=== PATIENT | female | born 1955 | race Caucasian/White ===

== ENCOUNTER 2018-07-12 02:22 | Outpatient (RCR) | payer BC, SELFPAY ==
[2018-07-12] MEDS: Normal Saline Flush 10 ML SYR IVP (14:59)
[2018-07-12] MEDS: Heparin 500 UNITS/5 ML SYRINGE IV (15:00)
[2018-07-12 15:46] LABS: Abs Immature Grans 0.02 k/cumm (0.0-0.09); Absolute Basophil Count 0.05 k/cumm (0.0-0.2); Absolute Lymphocyte Count 1.61 k/cumm (1.2-3.4); Absolute Monocyte Count 0.51 k/cumm (0.11-0.7); Absolute Neutrophil Count 4.06 k/cumm (1.2-6.7); Basophils % 0.8; Eosinophils % 4.6; HCT 35.9 % (36.0-46.0); HGB 12.1 g/dL (12.0-15.5); Immature Grans % 0.3; Lymphocytes % 24.6; Mean Corp. HGB Concentration 33.7 g/dL (32.0-36.0); Mean Corpuscular Hemoglobin 29.4 pg (27.0-33.0); Mean Corpuscular Volume 87.3 fL (80-95); Mean Platelet Volume 10.2 fL (8.0-11.0); Monocytes % 7.8; Neutrophils % 61.9; Platelet Count 209 x1000/uL (130-400); RBC 4.11 m/cumm (4.00-5.20); RBC Distribution Width 14.1 % (11.7-14.6); White Blood Cell Count 6.55 k/cumm (4.4-10.8)
[2018-07-12 16:07] LABS: ALT 12 U/L (12-78); AST 12 U/L (15-37); Albumin 3.5 g/dL (3.4-5.0); Alkaline Phosphatase 93 U/L (46-116); Anion Gap 5.8 mmol/L (3-11); BUN 12 mg/dL (7-18); Bilirubin, Total 0.3 mg/dL (0.2-1.0); CO2 29.2 mmol/L (21.0-32.0); CREATININE 0.59 mg/dL (0.55-1.02); Calcium 9.3 mg/dL (8.5-10.1); Chloride 104 mmol/L (98-107); Glucose 99 mg/dL (70-100); Potassium 3.9 mmol/L (3.5-5.1); Sodium 139 mmol/L (136-145); Total Protein 6.6 g/dL (6.4-8.2)
[2018-07-13 11:46] LABS: CA 19-9 586 U/mL (<35)
== END 2018-07-27 ==
LOC: INF 02:22
PROVIDERS: Visit Provider Nurse Practitioner Adult Health
DX: C25.9 Malignant neoplasm of pancreas, unspecified (principal); Z45.2 Encounter for adjustment and management of vascular access device
CPT/HCPCS: 36591; 80053; 85025; 86301

== ENCOUNTER 2018-07-19 10:29 | Emergency (ER) | payer BC, SELFPAY ==
[2018-07-19 10:38] VITALS: BP 152/101; PULSE 100; RESP 18; TEMP 36.7; O2SAT 98
--- NOTE | 2018-07-19 10:47 | DI.REPORT_ITS ---
SYMPTOM/DIAGNOSIS: NAUSEA, VOMITING, H/O PANCREATIC CA ABDOMEN: Two views were obtained. No free intraperitoneal air. Moderate to large quantity of fecal material in the colon, consistent with constipation. No evidence of bowel obstruction. No other specific abnormality is seen. PA CHEST: There is an indwelling right subclavian catheter in position. Cardiac size is within normal limits. Lungs are clear and well expanded. CONCLUSION: No evidence of acute disease.
--- NOTE | 2018-07-19 11:05 | ED.GENADUL ---
Disposition <Loco Mario - Last Filed: 07/19/18 13:57> <Jef De Paz - Last Filed: 07/19/18 16:47> Clinical Impression: Chemotherapy-induced nausea and vomiting Disposition: HOME Condition: Stable Instructions: Acute Nausea and Vomiting (ED) Additional Instructions: Return immediately to the emergency department for new or worsening symptoms these may include fever chills, chest pain, shortness of breath difficulty breathing, extreme weakness or any further concerns you may have. Otherwise it is important that you call the cancer center tomorrow morning for arrangement of follow-up reassessment and any further treatment you may need. For your bowel movements please take your Dulcolax and MiraLAX as prescribed. Otherwise eat small frequent meals and just start with clear liquids and bland foods and advance your diet as tolerated. Prescriptions: Ondansetron ODT [Zofran Odt] 4 mg PO Q6H PRN #10 tabef PRN Reason: Nausea Referrals: [facility] [Provider Group] (Call the office tomorrow morning for arrangement of follow-up visit.) Medical Decision Making - Lab Data Laboratory Tests 07/19/18 07/19/18 07/19/18 11:00 11:00 11:00 WBC 12.65 H RBC 4.75 Hgb 13.8 Hct 40.9 MCV 86.1 MCH 29.1 MCHC 33.7 RDW 13.6 Plt Count 245 MPV 9.8 Immature Gran % 0.1 Neutrophils % 84.1 Lymphocytes % 13.7 Monocytes % 1.8 Eosinophils % 0.3 Basophils % 0.0 Absolute Neutrophils 10.64 H Absolute Lymphocytes 1.73 Absolute Monocytes 0.23 Absolute Eosinophils 0.04 Absolute Basophils 0.00 Sodium 135 L Potassium 3.1 L Chloride 99 Carbon Dioxide 25.8 Anion Gap 10.2 BUN 18 Creatinine 0.50 L Estimated GFR/1.73 m2 >= 60.00 Glucose 121 H Lactate 0.9 Calcium 9.8 Magnesium 1.8 Total Bilirubin 0.9 AST 16 ALT 14 Alkaline Phosphatase 89 Total Protein 7.3 Albumin 3.7 - EKG Data -: EKG Interpreted by Ma EKG shows normal: sinus rhythm 07/19/18 13:57 Normal sinus rhythm, rate is 94, QRS is narrow, intervals unremarkable, no ST segment elevation present <Loco Mario - Last Filed: 07/19/18 13:57> - Lab Data Results reviewed for labs ordered during visit: Yes - Radiology Data Radiology results: report reviewed, image reviewed - Medical Decision Making Patient presenting to the emergency department with complaint of nausea vomiting and recent diagnosis of pancreatic cancer with starting chemotherapy Monday afternoon and symptoms beginning Monday night. Patient has not been able to take any oral intake of food, fluids, or medications. Patient was seen yesterday in the clinic and given Compazine, Ativan, and fluids but today has not improved and continues to look worse per nurse practitioner at the clinic and so patient is coming to the emergency department for further evaluation. Clinic was concerned of possible SBO given some abdominal discomfort that cannot be ruled out due to patient's history of cancer, opiate pain medication, and lack of bowel movement. Patient states that she was able to take her pain medication this morning and has tolerable amount of pain at this point but does feel anxious. Patient states chilled otherwise denies any known fever, chest pain, shortness of breath, or difficulty breathing. Patient is a frail looking female that is very thin. Plan to draw labs, check lactate, blood cultures, and to initially start with plain films of the abdomen. Abdominal exam does show diffuse nonfocal tenderness without rigidity and hyperactive bowel sounds. There is a possibility I will CT patient's abdomen but given need to wait for labs I do feel that this is an appropriate initial step. Pending results patient given Zofran IV and 1 L normal saline. Pending lab results patient stated some significant anxiety so she was given 0.5 mg of Ativan IV. After review of labs which do so some mild increase in WBCs, which I attributed to patient's recent chemotherapy and Neulasta and, and some mild hypokalemia patient shows no signs of significant laboratory findings of dehydration. Review of radiological imaging of patient's abdomen show mild stool burden but no significant findings of obstruction. Patient reassessed and stated some continued anxiety and mild nausea so additional 0.5 mg of Ativan was given along with additional 4 mg of Zofran after EKG was performed to ensure no QT prolongation. Patient then stated that she was feeling better so p.o. challenge was performed with water and crackers. Pending p.o. challenge I did call over to cancer Center and speak with Kristal Ely nurse practitioner. Reviewed all with patient results and findings with her. Given no significant or severe signs of dehydration and only mild hypokalemia I feel that if patient is able to tolerate p.o. intake that this is most likely side effects due to her chemotherapy which can be managed on an outpatient basis if able to tolerate p.o. Kristal stated no objection to this and after review of labs had no further recommendations. We agreed upon patient to receive some outpatient Zofran to see if that helps and for her to call the office first thing tomorrow morning for arrangement of follow-up appointment and to ensure that she is still tolerating p.o. intake. Patient was encouraged to return immediately for any new or significant worsening of symptoms. Patient was able to tolerate p.o. intake and requested to be discharged home as she states she was feeling better. Did also discuss with patient opiate use along with low oral intake and that that may cause some abdominal discomfort and constipation which may also be causing some of her crampy abdominal pain. Encourage patient to use Dulcolax as directed on packaging and then once she begins having bowel movements to start taking MiraLAX and to stay well-hydrated. After discussion of diagnosis and plan of care with patient patient agreed and stated no further needs, questions, or concerns at this time. <Jef De Paz - Last Filed: 07/19/18 16:47> History of Present Illness <Loco Mario - Last Filed: 07/19/18 13:57> - General Source: patient, family, RN/MD, RN notes reviewed, old records reviewed Mode of arrival: ambulatory Limitations: no limitations - History of Present Illness Initial comments: Patient reports that on Monday she had her first chemo treatment and since Monday evening she has had significant nausea and vomiting and has not been able to take any of her medications or tolerate any intake of food or fluids. Patient was seen earlier this morning at the cancer center and was sent to the emergency department for concern of severe dehydration, some subjective chills, and abdominal discomfort with nurse practitioner at cancer Center stating concern for possible SBO due to patient being on opiate pain medication. Onset/Timin -: days(s) Location: abdomen Severity scale (1-10): 6 Quality: aching Consistency: constant Improves with: none Worsens with: none Associated Symptoms: denies other symptoms Treatments Prior to Arrival: other (Pain medication-MS Contin) <Jef De Paz - Last Filed: 07/19/18 16:47> - General Chief complaint: Nausea/Vomit/Diar Stated complaint: PER [facility] Time Seen by Provider: 07/19/18 10:41 - Related Data Aspirin [Aspir 81] 81 mg PO DAILY 01/29/13 BuPROPion [Wellbutrin Xl] 300 mg PO QAM 01/29/13 Verapamil [Calan Sr] 180 mg PO DAILY 01/29/13 Atorvastatin [Lipitor] 10 mg PO DAILY tab-cap 11/18/15 Trazodone HCl 50 mg PO HS 11/18/15 Ondansetron ODT [Zofran Odt] 4 mg PO Q6H PRN #10 tabef 07/19/18 Allergies Allergy/AdvReac Type Severity Reaction Status Date / Time cyclobenzaprine HCl Allergy Intermediate Hives Unverified 11/18/15 09:41 [From Flexeril] tetracycline Allergy Mild Hives Unverified 11/18/15 09:41 Review of Systems Constitutional: chills, malaise, weakness. denies: fever Respiratory: denies: cough, shortness of breath Cardiovascular: denies: chest pain, palpitations, syncope Gastrointestinal: abdominal pain, nausea, constipation (Has not had bowel movement this week and attributes to not taking any food or fluids in.). denies: diarrhea Genitourinary: denies: dysuria Musculoskeletal: back pain (Mild) Skin: denies: rash Psychiatric: anxiety <Jef De Paz - Last Filed: 07/19/18 16:47> Past Medical History - Past Medical History Medical history: cancer (Pancreatic cancer) Surgical history: , hysterectomy, other (Port-A-Cath) Family history: CAD/VT - Social History Smoking status: current everyday smoker Alcohol use: none Drug use: none Living Situation: lives with family <Jef De Paz - Last Filed: 07/19/18 16:47> General Exam - General Limitations: no limitations General appearance: alert, other (Very thin frail appearing female) - ENT ENT exam: Present: mucous membranes dry - Respiratory Respiratory exam: Present: normal lung sounds bilaterally. Absent: respiratory distress, wheezes, rales, rhonchi, stridor - Cardiovascular Cardiovascular Exam: Present: regular rate, normal rhythm, normal heart sounds. Absent: tachycardia, systolic murmur, diastolic murmur, rubs, clicks - GI/Abdominal GI/Abdominal exam: Present: soft, tenderness (Diffuse throughout abdomen with no focal findings), hyperactive bowel sounds. Absent: guarding, rebound, rigid, organomegaly, mass, bruit, pulsatile mass - Neurological Exam Neurological exam: Present: alert, oriented X3. Absent: altered - Skin Skin exam: Present: warm, dry. Absent: cyanosis, diaphoretic, petechiae, pallor, mottled <Jef De Paz - Last Filed: 07/19/18 16:47> Course Vital Signs - 24 hr 07/19/18 07/19/18 10:38 13:37 Temperature 36.7 C 37.2 C Pulse 100 H 94 H Respiratory 18 16 Rate Blood Pressure 152/101 156/108 Pulse Oximetry 98 93 L <Loco Mario - Last Filed: 07/19/18 13:57> Vital Signs - 24 hr 07/19/18 10:38 Temperature 36.7 C Pulse 100 H Respiratory 18 Rate Blood Pressure 152/101 Pulse Oximetry 98 <Jef De Paz - Last Filed: 07/19/18 16:47>
[2018-07-19 11:14] LABS: Lactate-non-spesis 0.9 mmol/L (0.6-1.4)
[2018-07-19 11:15] LABS: Abs Immature Grans 0.01 k/cumm (0.0-0.09); Absolute Eosinophil Count 0.04 k/cumm (0.0-0.7); Absolute Lymphocyte Count 1.73 k/cumm (1.2-3.4); Absolute Monocyte Count 0.23 k/cumm (0.11-0.7); Absolute Neutrophil Count 10.64 k/cumm (1.2-6.7); Eosinophils % 0.3; HCT 40.9 % (36.0-46.0); HGB 13.8 g/dL (12.0-15.5); Immature Grans % 0.1; Lymphocytes % 13.7; Mean Corp. HGB Concentration 33.7 g/dL (32.0-36.0); Mean Corpuscular Hemoglobin 29.1 pg (27.0-33.0); Mean Corpuscular Volume 86.1 fL (80-95); Mean Platelet Volume 9.8 fL (8.0-11.0); Monocytes % 1.8; Neutrophils % 84.1; Platelet Count 245 x1000/uL (130-400); RBC 4.75 m/cumm (4.00-5.20); RBC Distribution Width 13.6 % (11.7-14.6); White Blood Cell Count 12.65 k/cumm (4.4-10.8)
[2018-07-19] MEDS: Ondansetron 4 MG/2 ML VIAL IVP ×2 (11:18→14:20)
[2018-07-19] MEDS: Lactated Ringers 1,000 ML 1000 ML IV (11:18)
[2018-07-19 11:29] LABS: ALT 14 U/L (12-78); AST 16 U/L (15-37); Albumin 3.7 g/dL (3.4-5.0); Alkaline Phosphatase 89 U/L (46-116); Anion Gap 10.2 mmol/L (3-11); BUN 18 mg/dL (7-18); Bilirubin, Total 0.9 mg/dL (0.2-1.0); CO2 25.8 mmol/L (21.0-32.0); Calcium 9.8 mg/dL (8.5-10.1); Chloride 99 mmol/L (98-107); Glucose 121 mg/dL (70-100); Magnesium 1.8 mg/dL (1.8-2.4); Potassium 3.1 mmol/L (3.5-5.1); Sodium 135 mmol/L (136-145); Total Protein 7.3 g/dL (6.4-8.2)
[2018-07-19] MEDS: LORazepam 2 MG/ML VIAL 0.5 MG IVP ×2 (11:36→13:37)
[2018-07-19 13:37] VITALS: BP 156/108; PULSE 94; RESP 16; TEMP 37.2; O2SAT 93
== END 2018-07-19 14:38 | disposition home or self-care (01) ==
PROVIDERS: Nurse Practitioner Family; Emergency Provider Emergency Medicine
DX: R11.2 Nausea with vomiting, unspecified (principal); T45.1X5A Adverse effect of antineoplastic and immunosuppressive drugs, initial encounter; C25.9 Malignant neoplasm of pancreas, unspecified; F41.9 Anxiety disorder, unspecified
CPT/HCPCS: 36415; 80053; 87040; 93005; 96361; 96374; 96375; 96376; 99285; 74022; 83605; 83735; 85025; 93010; 99284; J2060; J2405; J3490

== ENCOUNTER 2018-07-22 12:16 | Emergency (ER) | payer BC, SELFPAY ==
[2018-07-22 12:22] VITALS: BP 142/89; PULSE 106; RESP 20; TEMP 36.6; O2SAT 98
--- NOTE | 2018-07-22 12:37 | DI.RPTCT_ITS ---
SYMPTOMS/DIAGNOSIS: PANCREATIC CANCER, SEVERE EPIGASTRIC PAIN, VOMITING CT SCAN OF THE ABDOMEN AND PELVIS: CT scan of the abdomen and pelvis was performed following the uneventful administration of intravenous and oral contrast material. There are no priors for comparison. The visualized lung bases are clear. The liver is normal in size and appearance. There is a cyst in the left lobe of the liver. Tiny hypodensities are also seen throughout the liver. They are too small for further characterization. The portal and superior mesenteric veins are patent. The gallbladder is negative by CT criteria. There is no biliary ductal dilatation. There is a hypodense mass in the body of the pancreas most suggestive of the patient's known history of pancreatic carcinoma. This area measures approximately 3 cm in diameter. There is atrophy of the tail of the pancreas with enlargement of the pancreatic duct in the tail. There is thrombus seen within the mid portion of the splenic vein. The splenic artery is patent as visualized. Collateral vessels are seen around the pancreatic body. The spleen is unremarkable as are the adrenal glands. The kidneys show normal and symmetric enhancement. No evidence of a solid renal mass is present. There are hypodense lesions seen in the left kidney. They are too small for further characterization but likely reflect cysts. The urinary bladder is intact. The uterus appears to be absent. There is atherosclerosis of the abdominal aorta and extensive thrombus is seen in the infrarenal abdominal aorta. There is resultant narrowing of the lumen of the infrarenal abdominal aorta. No significant abdominal or pelvic ascites or pneumoperitoneum is present. There is a large amount of stool seen throughout the colon suggesting constipation. No findings to suggest an acute inflammatory or infectious process is seen. There is a normal appendix in the right lower quadrant. The bones are intact. There is a small fat containing umbilical hernia. IMPRESSION: 1. No evidence of an acute abdomen. 2. Findings suggestive of constipation. 3. Mass involving the body of the pancreas most suggestive of pancreatic carcinoma. Thrombus is seen in the mid portion of the splenic vein. 4. Extensive thrombus seen in the infrarenal abdominal aorta narrowing the lumen.
--- NOTE | 2018-07-22 12:42 | ED.GENADUL ---
Disposition Clinical Impression: Nausea and vomiting, Pancreatic cancer, Constipation Disposition: HOME Condition: Good Instructions: Constipation (ED), Acute Nausea and Vomiting (ED) Additional Instructions: Please take the Dilaudid as directed. Please take your Zofran every 6-8 hours as needed. Please take 2 packets of MiraLAX with 5 cups of water daily until you have consistent soft stool. If you notice any worsening of your symptoms, or any new symptoms such as vomiting, diarrhea, fever, chills, shortness of breath, chest pain, numbness, weakness, or fainting , please return immediately to the emergency department for reevaluation. Please follow up with your primary care provider as soon as possible for reassessment and reevaluation. As always, it was a pleasure participating in your medical care today. Prescriptions: HYDROmorphone [Dilaudid] 4 mg PO Q6H #20 tab Medical Decision Making - Medical Decision Making This is a pleasant 62-year-old female who was recently diagnosed with pancreatic cancer presents for evaluation of nausea vomiting and epigastric pain. She started chemotherapy on Monday, she had worsening of her symptoms and was seen and assessed here on had a normal abdominal series x-ray, and a relatively benign laboratory workup. Her symptoms have continued not improved over the last 3 days since her initial assessment here in the ED. She has difficulty maintaining p.o., and her pain appears to be unresolved. We will get a CT scan to evaluate for any signs of obstruction or worsening mass or occlusion. We will get a lipase as requested by her oncology team at [facility]. We will treat her pain and rehydrate. 5:[address] scan has returned, she demonstrates per virtual radiology findings consistent with constipation as well as additional findings consistent with a history of pancreatic carcinoma without evidence of gastric outlet obstruction or bowel obstruction. The patient's pain and symptoms have been significantly improved with the IV Dilaudid. She has been able to tolerate p.o. well. With findings of constipation, I do think this is most likely worsened by her recent pain medications, as well as a lack of taking her regular MiraLAX. Unfortunately she has the confounding variable of having severe chronic pain secondary to her pancreatic carcinoma. At this time the patient's priorities with her grave disease are pain control, control of her vomiting and nausea. Laboratory workup shows no evidence of significant pancreatitis. Her electrolytes demonstrate mild hypokalemia, no other significant abnormalities I imagine this is most likely secondary to her vomiting. Now that she is able to tolerate p.o. we will recommend diet high in potassium. We will give the patient oral Dilaudid for home use, focus her MiraLAX use, and continue her home Zofran. We discussed red flags which to return as well as the importance of close follow-up with her oncologist. The patient has complete resolution of her symptoms feel that she is appropriate for discharge. I have extensively reviewed the treatment plan and discharge instructions with the patient. I have addressed all patient concerns at this time. The patient was made aware of what symptoms to monitor for that would warrant a return to the emergency department. Discussed the plan with the patient, they demonstrate verbal understanding and agreement with our assessment and plan at this time. Additionally since we are giving the Dilaudid we will have the patient stop taking her Roxicodone and morphine. She has not been taking these because of adverse reactions from the medications associated with nausea, confusion, and bad dreams. Thus she needs a substitute and I feel she has tolerated the Dilaudid well here and will tolerate it well at home. We discussed the risks and benefits of taking this medication at home including the risks of addiction, decreased respiratory state, and constipation the patient understands these and accepts these. We went through potential alternatives and this appears the best viable option at this point. EKG 12: 46 Rate 97, sinus rhythm, IN 130, QTc 442, QRS 88, no ST elevations or depressions, no T-wave inversions except for in lead III. No other significant abnormalities. History of Present Illness - General Chief complaint: Abd Prob Stated complaint: STOMACH ISSUES Time Seen by Provider: 07/22/18 12:36 - History of Present Illness Initial comments: This is a pleasant 62-year-old female with a past medical history of recently diagnosed pancreatic cancer one month ago, with a pancreatic mass, who just started chemotherapy 6 days ago on Monday. On review of [facility] note she has been struggling with symptoms of epigastric pain nausea and vomiting consistently since her pancreatic cancer was diagnosed. The patient is on morphine, pain and nausea medications at home. After starting her chemotherapy the patient had severe malaise, worsening of her nausea, vomiting and epigastric pain. She was seen and assessed here 3 days ago on and had an x-ray performed which was negative, laboratory workup showing no severe abnormality. Patient's pain has continued, has not improved since then over the last 3 days. She continues to have difficulty maintaining p.o., she is having regular bowel movements O. She denies any hematemesis, hematochezia or acholic stool. She is taking her medications as directed. She did contact [facility] and spoke with Ezequiel Jo who is on-call for oncology, they recommended that she come in to get an evaluation of a lipase level. In addition to her epigastric pain and vomiting the patient has no additional complaints at this time. She is not on any blood thinners. She denies any recent trauma. She denies any pertinent family history. Past surgical history is positive for hysterectomy. She denies any IV or illicit drug use. - Related Data BuPROPion [Wellbutrin Xl] 300 mg PO QAM 01/29/13 Verapamil [Calan Sr] 180 mg PO DAILY 01/29/13 Atorvastatin [Lipitor] 10 mg PO DAILY tab-cap 11/18/15 Trazodone HCl 50 mg PO HS 11/18/15 Ondansetron ODT [Zofran Odt] 4 mg PO Q6H PRN #10 tabef 07/19/18 Bismuth Subsalicylate [Pepto-Bismol] 15 ml PO PRN PRN 07/22/18 HYDROmorphone [Dilaudid] 4 mg PO Q6H #20 tab 07/22/18 LORazepam [Ativan] 1 tab PO PRN PRN 07/22/18 Allergies Allergy/AdvReac Type Severity Reaction Status Date / Time cyclobenzaprine HCl Allergy Intermediate Hives Unverified 07/22/18 12:25 [From Flexeril] tetracycline Allergy Mild Hives Unverified 07/22/18 12:25 Review of Systems Other: 10 point review of systems was performed, pertinent positives and negatives are noted in the history of present illness. Past Medical History - Past Medical History Medical history: cancer (Pancreatic cancer) Surgical history: , hysterectomy, other (Port-A-Cath) Family history: CAD/SC - Social History Alcohol use: none Drug use: none General Exam - Other Other exam information: 1.Const: Thin and cachectic appearing female 2.Eyes: PERRL, no conjunctival injection, and symmetrical lids. 3.ENT: Atraumatic external nose and ears. Notably dry MM. Neck: Symmetric, trachea midline, No thyromegaly. 4.CVS: +S1/S2, No murmurs or gallops. Peripheral pulses 2+ and equal in all extremities. Brisk capillary refill in all extremities. 5.RESP: Unlabored respiratory effort. Clear to auscultation bilaterally. No wheezes rales or rhonchi 6.GI: Soft, notably tender epigastric pain on palpation, minimal voluntary guarding. Generalized tenderness throughout. No distention. Bowel sounds are present. 7.MSK: Normocephalic/Atraumatic, Extremities w/o deformity or ttp No cyanosis or clubbing, Normal movement of all extremities 8.Skin: Warm, Dry. No rashes or lesions. 9.Neuro: [employer] II-XII grossly intact. Sensation grossly intact, no focal neurologic deficits. 10.Psych: (AAO) x3. Appropriate mood and affect Course Vital Signs - 24 hr 07/22/18 12:22 Temperature 36.6 C Pulse 106 H Respiratory 20 Rate Blood Pressure 142/89 Pulse Oximetry 98
--- NOTE | 2018-07-22 12:46 | ED.GENADUL_ITS ---
Disposition Clinical Impression: Nausea and vomiting, Pancreatic cancer, Constipation Disposition: HOME Condition: Good Instructions: Constipation (ED), Acute Nausea and Vomiting (ED) Additional Instructions: Please take the Dilaudid as directed. Please take your Zofran every 6-8 hours as needed. Please take 2 packets of MiraLAX with 5 cups of water daily until you have consistent soft stool. If you notice any worsening of your symptoms, or any new symptoms such as vomiting, diarrhea, fever, chills, shortness of breath, chest pain, numbness, weakness, or fainting , please return immediately to the emergency department for reevaluation. Please follow up with your primary care provider as soon as possible for reassessment and reevaluation. As always, it was a pleasure participating in your medical care today. Prescriptions: HYDROmorphone [Dilaudid] 4 mg PO Q6H #20 tab Medical Decision Making - Medical Decision Making This is a pleasant 62-year-old female who was recently diagnosed with pancreatic cancer presents for evaluation of nausea vomiting and epigastric pain. She started chemotherapy on Monday, she had worsening of her symptoms and was seen and assessed here on had a normal abdominal series x-ray, and a relatively benign laboratory workup. Her symptoms have continued not improved over the last 3 days since her initial assessment here in the ED. She has difficulty maintaining p.o., and her pain appears to be unresolved. We will get a CT scan to evaluate for any signs of obstruction or worsening mass or occlusion. We will get a lipase as requested by her oncology team at [facility]. We will treat her pain and rehydrate. 5:[address] scan has returned, she demonstrates per virtual radiology findings consistent with constipation as well as additional findings consistent with a history of pancreatic carcinoma without evidence of gastric outlet obstruction or bowel obstruction. The patient's pain and symptoms have been significantly improved with the IV Dilaudid. She has been able to tolerate p.o. well. With findings of constipation, I do think this is most likely worsened by her recent pain medications, as well as a lack of taking her regular MiraLAX. Unfortunately she has the confounding variable of having severe chronic pain secondary to her pancreatic carcinoma. At this time the patient's priorities with her grave disease are pain control, control of her vomiting and nausea. Laboratory workup shows no evidence of significant pancreatitis. Her electrolytes demonstrate mild hypokalemia, no other significant abnormalities I imagine this is most likely secondary to her vomiting. Now that she is able to tolerate p.o. we will recommend diet high in potassium. We will give the patient oral Dilaudid for home use, focus her MiraLAX use, and continue her home Zofran. We discussed red flags which to return as well as the importance of close follow-up with her oncologist. The patient has complete resolution of her symptoms feel that she is appropriate for discharge. I have extensively reviewed the treatment plan and discharge instructions with the patient. I have addressed all patient concerns at this time. The patient was made aware of what symptoms to monitor for that would warrant a return to the emergency department. Discussed the plan with the patient, they demonstrate verbal understanding and agreement with our assessment and plan at this time. Additionally since we are giving the Dilaudid we will have the patient stop taking her Roxicodone and morphine. She has not been taking these because of adverse reactions from the medications associated with nausea, confusion, and bad dreams. Thus she needs a substitute and I feel she has tolerated the Dilaudid well here and will tolerate it well at home. We discussed the risks and benefits of taking this medication at home including the risks of addiction , decreased respiratory state, and constipation the patient understands these and accepts these. We went through potential alternatives and this appears the best viable option at this point. EKG 12: 46 Rate 97, sinus rhythm, OR 130, QTc 442, QRS 88, no ST elevations or depressions , no T-wave inversions except for in lead III. No other significant abnormalities. History of Present Illness - General Chief complaint: Abd Prob Stated complaint: STOMACH ISSUES Time Seen by Provider: 07/22/18 12:36 - History of Present Illness Initial comments: This is a pleasant 62-year-old female with a past medical history of recently diagnosed pancreatic cancer one month ago, with a pancreatic mass, who just started chemotherapy 6 days ago on Monday. On review of [facility] note she has been struggling with symptoms of epigastric pain nausea and vomiting consistently since her pancreatic cancer was diagnosed. The patient is on morphine, pain and nausea medications at home. After starting her chemotherapy the patient had severe malaise, worsening of her nausea, vomiting and epigastric pain. She was seen and assessed here 3 days ago on and had an x-ray performed which was negative, laboratory workup showing no severe abnormality. Patient's pain has continued, has not improved since then over the last 3 days. She continues to have difficulty maintaining p.o., she is having regular bowel movements O. She denies any hematemesis, hematochezia or acholic stool. She is taking her medications as directed. She did contact [facility] and spoke with Ezequiel Jo who is on-call for oncology, they recommended that she come in to get an evaluation of a lipase level. In addition to her epigastric pain and vomiting the patient has no additional complaints at this time. She is not on any blood thinners. She denies any recent trauma. She denies any pertinent family history. Past surgical history is positive for hysterectomy. She denies any IV or illicit drug use. - Related Data BuPROPion [Wellbutrin Xl] 300 mg PO QAM 01/29/13 Verapamil [Calan Sr] 180 mg PO DAILY 01/29/13 Atorvastatin [Lipitor] 10 mg PO DAILY tab-cap 11/18/15 Trazodone HCl 50 mg PO HS 11/18/15 Ondansetron ODT [Zofran Odt] 4 mg PO Q6H PRN #10 tabef 07/19/18 Bismuth Subsalicylate [Pepto-Bismol] 15 ml PO PRN PRN 07/22/18 HYDROmorphone [Dilaudid] 4 mg PO Q6H #20 tab 07/22/18 LORazepam [Ativan] 1 tab PO PRN PRN 07/22/18 Allergies Allergy/AdvReac Type Severity Reaction Status Date / Time cyclobenzaprine HCl Allergy Intermediate Hives Unverified 07/22/18 12:25 [From Flexeril] tetracycline Allergy Mild Hives Unverified 07/22/18 12:25 Review of Systems Other: 10 point review of systems was performed, pertinent positives and negatives are noted in the history of present illness. Past Medical History - Past Medical History Medical history: cancer (Pancreatic cancer) Surgical history: , hysterectomy, other (Port-A-Cath) Family history: CAD/HI - Social History Alcohol use: none Drug use: none General Exam - Other Other exam information: 1.Const: Thin and cachectic appearing female 2.Eyes: PERRL, no conjunctival injection, and symmetrical lids. 3.ENT: Atraumatic external nose and ears. Notably dry MM. Neck: Symmetric, trachea midline, No thyromegaly. 4.CVS: +S1/S2, No murmurs or gallops. Peripheral pulses 2+ and equal in all extremities. Brisk capillary refill in all extremities. 5.RESP: Unlabored respiratory effort. Clear to auscultation bilaterally. No wheezes rales or rhonchi 6.GI: Soft, notably tender epigastric pain on palpation, minimal voluntary guarding. Generalized tenderness throughout. No distention. Bowel sounds are present. 7.MSK: Normocephalic/Atraumatic, Extremities w/o deformity or ttp No cyanosis or clubbing, Normal movement of all extremities 8.Skin: Warm, Dry. No rashes or lesions. 9.Neuro: night guard II-XII grossly intact. Sensation grossly intact, no focal neurologic deficits. 10.Psych: (AAO) x3. Appropriate mood and affect Course Vital Signs - 24 hr 07/22/18 12:22 Temperature 36.6 C Pulse 106 H Respiratory 20 Rate Blood Pressure 142/89 Pulse Oximetry 98
[2018-07-22] MEDS: Normal Saline 1,000 ML 1000 ML IV (13:01)
[2018-07-22] MEDS: Ondansetron 4 MG/2 ML VIAL IVP (13:02)
[2018-07-22 13:03] LABS: Abs Immature Grans 0.02 k/cumm (0.0-0.09); Absolute Basophil Count 0.02 k/cumm (0.0-0.2); Absolute Lymphocyte Count 2.18 k/cumm (1.2-3.4); Absolute Monocyte Count 0.38 k/cumm (0.11-0.7); Absolute Neutrophil Count 4.24 k/cumm (1.2-6.7); Basophils % 0.3; Eosinophils % 5.5; HCT 38.8 % (36.0-46.0); HGB 13.6 g/dL (12.0-15.5); Immature Grans % 0.3; Lymphocytes % 30.1; Mean Corp. HGB Concentration 35.1 g/dL (32.0-36.0); Mean Corpuscular Hemoglobin 29.2 pg (27.0-33.0); Mean Corpuscular Volume 83.4 fL (80-95); Mean Platelet Volume 9.4 fL (8.0-11.0); Monocytes % 5.2; Neutrophils % 58.6; Platelet Count 158 x1000/uL (130-400); RBC 4.65 m/cumm (4.00-5.20); RBC Distribution Width 12.9 % (11.7-14.6); White Blood Cell Count 7.24 k/cumm (4.4-10.8)
[2018-07-22] MEDS: diphenhydrAMINE 50 MG/ML VIAL 25 MG IVP (13:03)
[2018-07-22] MEDS: HYDROmorphone 2 MG/ML VIAL 1 MG IVP ×2 (13:05→15:59)
[2018-07-22 13:18] LABS: ALT 12 U/L (12-78); AST 12 U/L (15-37); Albumin 3.3 g/dL (3.4-5.0); Alkaline Phosphatase 92 U/L (46-116); Anion Gap 7.5 mmol/L (3-11); BUN 27 mg/dL (7-18); Bilirubin, Total 0.3 mg/dL (0.2-1.0); CO2 27.5 mmol/L (21.0-32.0); CREATININE 0.59 mg/dL (0.55-1.02); Calcium 9.5 mg/dL (8.5-10.1); Chloride 100 mmol/L (98-107); Glucose 128 mg/dL (70-100); Lipase 95 U/L (73-393); Potassium 3.2 mmol/L (3.5-5.1); Sodium 135 mmol/L (136-145); Total Protein 6.6 g/dL (6.4-8.2)
[2018-07-22 13:22] LABS: Troponin I < 0.02 ng/mL (0.00-0.06)
[2018-07-22 14:34] LABS: Bilirubin Negative (Negative); Blood Trace-intact (Negative); Clarity Clear; Glucose Negative (Negative); Ketones Negative (Negative); Leukocyte Esterase Negative (Negative); Nitrite Negative (Negative); Urobilinogen 0.2 EU/dL (Up TO 0.2)
[2018-07-22 14:40] LABS: Bacteria Few HPF (Negative); C & S Indicated? No; Casts Negative LPF (Negative); Crystals Few Amorphous HPF (Negative); Epithelial Cells Few HPF (Negative); Mucus Trace (Negative); RBC 0-2 (0-2)
[2018-07-22] MEDS: Omnipaque 350 MG/ML 100 ML BTL IJ (15:25)
--- NOTE | 2018-07-22 16:28 | DI.VRAD_ITS ---
EXAM: CT Abdomen and Pelvis With Intravenous Contrast CLINICAL HISTORY: 62 years old, female; Signs and symptoms; Other: Pancreatic cancer, severe epigastric pain, vomiting TECHNIQUE: Axial computed tomography images of the abdomen and pelvis with intravenous contrast. Coronal and sagittal reformatted images were created and reviewed. COMPARISON: CR - ABD FLAT UPRIGHT PA CHEST 07/19/2018 12:36 PM FINDINGS: Appendix is normal. Pancreatic head is enlarged and inhomogeneous consistent with the history of pancreatic carcinoma. The pancreatic duct is also dilated. No focal inflammatory process or evidence of abnormal fluid collection is identified. Prominent atherosclerotic changes of the abdominal aorta with moderate mural thrombus but no significant aneurysmal dilatation. No obstructive uropathy. No evidence of bowel obstruction. The stomach is not significantly dilated. Prominent amount of fecal material within the colon consistent with constipation. Prior hysterectomy. IMPRESSION: Findings consistent with constipation as well as additional findings consistent with the history of pancreatic carcinoma without evidence of gastric outlet obstruction or bowel obstruction. Dictated and Authenticated by: Amrik Matamoros MD. Ordering:CHELSEA IZAGUIRRE MD
[2018-07-22 16:37] VITALS: BP 116/75; PULSE 92; RESP 14; O2SAT 96
[2018-07-22] MEDS: HYDROmorphone 4 MG TAB 8 MG PO (17:24)
[2018-07-22] MEDS: HYDROmorphone 2 MG/ML VIAL 0.5 MG IVP (17:25)
[2018-07-22 17:28] VITALS: BP 101/66; PULSE 87; RESP 16; TEMP 36.5; O2SAT 98
== END 2018-07-22 17:27 | disposition home or self-care (01) ==
PROVIDERS: Emergency Provider Student in an Organized Health Care Education/Training Program
DX: R11.2 Nausea with vomiting, unspecified (principal); K59.00 Constipation, unspecified; R10.13 Epigastric pain; C25.9 Malignant neoplasm of pancreas, unspecified; Z79.899 Other long term (current) drug therapy
CPT/HCPCS: 36415; 80053; 83690; 93005; 96361; 96374; 96375; 96376; 99285; 74177; 81003; 81015; 84484; 85025; 93010; J1200; J2405; J3490

== ENCOUNTER 2018-07-28 10:11 | Outpatient (CLI) | payer BC, SELFPAY ==
[2018-07-28 16:55] LABS: Anion Gap 5.6 mmol/L (3-11); BUN 10 mg/dL (7-18); CO2 29.4 mmol/L (21.0-32.0); CREATININE 0.72 mg/dL (0.55-1.02); Calcium 8.7 mg/dL (8.5-10.1); Chloride 98 mmol/L (98-107); Glucose 116 mg/dL (70-100); Potassium 3.8 mmol/L (3.5-5.1); Sodium 133 mmol/L (136-145)
[2018-07-28 16:58] LABS: HCT 33.1 % (36.0-46.0); HGB 11.1 g/dL (12.0-15.5); Mean Corp. HGB Concentration 33.5 g/dL (32.0-36.0); Mean Corpuscular Hemoglobin 28.9 pg (27.0-33.0); Mean Corpuscular Volume 86.2 fL (80-95); RBC 3.84 m/cumm (4.00-5.20); White Blood Cell Count 4.41 k/cumm (4.4-10.8)
[2018-07-28 17:00] LABS: Abs Immature Grans 0.01 k/cumm (0.0-0.09); Absolute Basophil Count 0.01 k/cumm (0.0-0.2); Absolute Eosinophil Count 0.19 k/cumm (0.0-0.7); Absolute Lymphocyte Count 0.67 k/cumm (1.2-3.4); Absolute Monocyte Count 0.79 k/cumm (0.11-0.7); Absolute Neutrophil Count 2.74 k/cumm (1.2-6.7); Basophils % 0.2; Eosinophils % 4.3; Immature Grans % 0.2; Lymphocytes % 15.2; Mean Platelet Volume 10.1 fL (8.0-11.0); Monocytes % 17.9; Neutrophils % 62.2; Platelet Count 238 x1000/uL (130-400); RBC Distribution Width 13.5 % (11.7-14.6)
[2018-07-28 17:21] LABS: Magnesium 1.3 mg/dL (1.8-2.4)
== END 2018-07-28 10:12 ==
PROVIDERS: PCP Family Medicine; Visit Provider Family Medicine
DX: C25.9 Malignant neoplasm of pancreas, unspecified (principal); T45.1X5A Adverse effect of antineoplastic and immunosuppressive drugs, initial encounter; R11.2 Nausea with vomiting, unspecified; D64.9 Anemia, unspecified; E87.1 Hypo-osmolality and hyponatremia; E83.42 Hypomagnesemia
CPT/HCPCS: 80048; 83735; 85025

== ENCOUNTER 2018-08-24 00:46 | Outpatient (RCR) | payer BC, SELFPAY ==
[2018-08-10] MEDS: Heparin 500 UNITS/5 ML SYRINGE IV (13:50)
[2018-08-10] MEDS: Normal Saline Flush 10 ML SYR IVP (13:50)
[2018-08-10 14:22] LABS: Abs Immature Grans 0.04 k/cumm (0.0-0.09); Absolute Basophil Count 0.04 k/cumm (0.0-0.2); Absolute Eosinophil Count 0.21 k/cumm (0.0-0.7); Absolute Lymphocyte Count 2.04 k/cumm (1.2-3.4); Absolute Monocyte Count 0.55 k/cumm (0.11-0.7); Absolute Neutrophil Count 4.53 k/cumm (1.2-6.7); Basophils % 0.5; Eosinophils % 2.8; HCT 33.7 % (36.0-46.0); Immature Grans % 0.5; Lymphocytes % 27.5; Mean Corp. HGB Concentration 32.6 g/dL (32.0-36.0); Mean Corpuscular Volume 88.9 fL (80-95); Monocytes % 7.4; Neutrophils % 61.3; Platelet Count 296 x1000/uL (130-400); RBC 3.79 m/cumm (4.00-5.20); RBC Distribution Width 15.1 % (11.7-14.6); White Blood Cell Count 7.41 k/cumm (4.4-10.8)
[2018-08-10 14:44] LABS: ALT 14 U/L (12-78); AST 15 U/L (15-37); Albumin 2.8 g/dL (3.4-5.0); Alkaline Phosphatase 82 U/L (46-116); Anion Gap 8.8 mmol/L (3-11); BUN 14 mg/dL (7-18); Bilirubin, Total 0.1 mg/dL (0.2-1.0); CO2 27.2 mmol/L (21.0-32.0); CREATININE 0.66 mg/dL (0.55-1.02); Chloride 104 mmol/L (98-107); Glucose 125 mg/dL (70-100); Potassium 4.1 mmol/L (3.5-5.1); Sodium 140 mmol/L (136-145)
[2018-08-13 15:57] LABS: CA 19-9 1188 U/mL (<35)
[2018-08-17] MEDS: Normal Saline Flush 10 ML SYR IVP (12:15)
[2018-08-17 12:56] LABS: Abs Immature Grans 0.02 k/cumm (0.0-0.09); Absolute Basophil Count 0.01 k/cumm (0.0-0.2); Absolute Eosinophil Count 0.03 k/cumm (0.0-0.7); Absolute Lymphocyte Count 1.04 k/cumm (1.2-3.4); Absolute Monocyte Count 0.79 k/cumm (0.11-0.7); Absolute Neutrophil Count 9.37 k/cumm (1.2-6.7); Basophils % 0.1; Eosinophils % 0.3; HCT 35.8 % (36.0-46.0); HGB 11.8 g/dL (12.0-15.5); Immature Grans % 0.2; Lymphocytes % 9.2; Mean Corpuscular Hemoglobin 29.1 pg (27.0-33.0); Mean Corpuscular Volume 88.4 fL (80-95); Mean Platelet Volume 9.6 fL (8.0-11.0); Neutrophils % 83.2; Platelet Count 293 x1000/uL (130-400); RBC 4.05 m/cumm (4.00-5.20); RBC Distribution Width 15.2 % (11.7-14.6); White Blood Cell Count 11.26 k/cumm (4.4-10.8)
[2018-08-17 12:57] LABS: ALT 14 U/L (12-78); AST 10 U/L (15-37); Albumin 3.4 g/dL (3.4-5.0); Alkaline Phosphatase 82 U/L (46-116); Anion Gap 7.1 mmol/L (3-11); BUN 15 mg/dL (7-18); Bilirubin, Total 0.3 mg/dL (0.2-1.0); CO2 28.9 mmol/L (21.0-32.0); CREATININE 0.63 mg/dL (0.55-1.02); Chloride 101 mmol/L (98-107); Glucose 140 mg/dL (70-100); Potassium 3.5 mmol/L (3.5-5.1); Sodium 137 mmol/L (136-145); Total Protein 6.7 g/dL (6.4-8.2)
[2018-08-20 11:57] LABS: CA 19-9 1701 U/mL (<35)
[2018-08-24] MEDS: Normal Saline Flush 10 ML SYR IVP (09:00)
[2018-08-24 09:18] LABS: Abs Immature Grans 0.01 k/cumm (0.0-0.09); Absolute Lymphocyte Count 1.66 k/cumm (1.2-3.4); Absolute Monocyte Count 0.23 k/cumm (0.11-0.7); Absolute Neutrophil Count 2.07 k/cumm (1.2-6.7); Eosinophils % 4.8; HCT 32.1 % (36.0-46.0); HGB 10.6 g/dL (12.0-15.5); Immature Grans % 0.2; Lymphocytes % 39.8; Mean Corpuscular Hemoglobin 29.4 pg (27.0-33.0); Mean Corpuscular Volume 88.9 fL (80-95); Mean Platelet Volume 9.3 fL (8.0-11.0); Monocytes % 5.5; Neutrophils % 49.7; Platelet Count 136 x1000/uL (130-400); RBC 3.61 m/cumm (4.00-5.20); RBC Distribution Width 15.1 % (11.7-14.6); White Blood Cell Count 4.17 k/cumm (4.4-10.8)
[2018-08-24 09:33] LABS: ALT 14 U/L (12-78); AST 9 U/L (15-37); Alkaline Phosphatase 92 U/L (46-116); Anion Gap 5.1 mmol/L (3-11); BUN 26 mg/dL (7-18); Bilirubin, Total 0.2 mg/dL (0.2-1.0); CO2 30.9 mmol/L (21.0-32.0); CREATININE 0.59 mg/dL (0.55-1.02); Calcium 9.5 mg/dL (8.5-10.1); Chloride 100 mmol/L (98-107); Glucose 120 mg/dL (70-100); Potassium 4.3 mmol/L (3.5-5.1); Sodium 136 mmol/L (136-145)
== END 2018-08-26 23:59 | disposition home or self-care (01) ==
LOC: INF 00:46
PROVIDERS: PCP Family Medicine; Visit Provider Nurse Practitioner Adult Health
DX: C25.9 Malignant neoplasm of pancreas, unspecified (principal); Z45.2 Encounter for adjustment and management of vascular access device
CPT/HCPCS: 36591; 80053; 85025; 86301

== ENCOUNTER 2018-09-21 01:09 | Outpatient (RCR) | payer BC, SELFPAY ==
[2018-08-31] MEDS: Normal Saline Flush 10 ML SYR IVP (08:25)
[2018-08-31 08:40] LABS: Abs Immature Grans 0.01 k/cumm (0.0-0.09); Absolute Eosinophil Count 0.07 k/cumm (0.0-0.7); Absolute Lymphocyte Count 1.44 k/cumm (1.2-3.4); Absolute Monocyte Count 0.31 k/cumm (0.11-0.7); Absolute Neutrophil Count 2.62 k/cumm (1.2-6.7); Eosinophils % 1.6; HCT 29.5 % (36.0-46.0); HGB 9.5 g/dL (12.0-15.5); Immature Grans % 0.2; Lymphocytes % 32.4; Mean Corp. HGB Concentration 32.2 g/dL (32.0-36.0); Mean Corpuscular Hemoglobin 29.2 pg (27.0-33.0); Mean Corpuscular Volume 90.8 fL (80-95); Mean Platelet Volume 9.1 fL (8.0-11.0); Neutrophils % 58.8; RBC 3.25 m/cumm (4.00-5.20); RBC Distribution Width 15.7 % (11.7-14.6); White Blood Cell Count 4.45 k/cumm (4.4-10.8)
[2018-08-31 08:59] LABS: Diff Comment RBC Morph Reviewed; Platelet Count 91 x1000/uL (130-400)
[2018-08-31 09:00] LABS: Poikilocytes 2+
[2018-08-31 09:13] LABS: ALT 15 U/L (12-78); AST 10 U/L (15-37); Albumin 2.7 g/dL (3.4-5.0); Alkaline Phosphatase 89 U/L (46-116); Anion Gap 5.4 mmol/L (3-11); BUN 14 mg/dL (7-18); Bilirubin, Total 0.2 mg/dL (0.2-1.0); CO2 28.6 mmol/L (21.0-32.0); CREATININE 0.57 mg/dL (0.55-1.02); Calcium 8.9 mg/dL (8.5-10.1); Chloride 105 mmol/L (98-107); Glucose 123 mg/dL (70-100); Sodium 139 mmol/L (136-145); Total Protein 5.7 g/dL (6.4-8.2)
[2018-09-03 12:36] LABS: CA 19-9 1533 U/mL (<35)
[2018-09-14] MEDS: Normal Saline Flush 10 ML SYR IVP (08:55)
[2018-09-14 09:35] LABS: Abs Immature Grans 0.03 k/cumm (0.0-0.09); Absolute Basophil Count 0.02 k/cumm (0.0-0.2); Absolute Lymphocyte Count 1.39 k/cumm (1.2-3.4); Absolute Monocyte Count 0.72 k/cumm (0.11-0.7); Basophils % 0.3; Eosinophils % 1.5; HCT 32.2 % (36.0-46.0); HGB 10.3 g/dL (12.0-15.5); Immature Grans % 0.5; Lymphocytes % 20.9; Mean Corpuscular Hemoglobin 29.3 pg (27.0-33.0); Mean Corpuscular Volume 91.7 fL (80-95); Mean Platelet Volume 9.1 fL (8.0-11.0); Monocytes % 10.8; Platelet Count 343 x1000/uL (130-400); RBC 3.51 m/cumm (4.00-5.20); RBC Distribution Width 16.9 % (11.7-14.6); White Blood Cell Count 6.66 k/cumm (4.4-10.8)
[2018-09-14 09:49] LABS: ALT 15 U/L (12-78); AST 15 U/L (15-37); Albumin 3.1 g/dL (3.4-5.0); Alkaline Phosphatase 87 U/L (46-116); Anion Gap 8.1 mmol/L (3-11); BUN 12 mg/dL (7-18); Bilirubin, Total 0.2 mg/dL (0.2-1.0); CO2 27.9 mmol/L (21.0-32.0); CREATININE 0.59 mg/dL (0.55-1.02); Calcium 8.9 mg/dL (8.5-10.1); Chloride 104 mmol/L (98-107); Glucose 112 mg/dL (70-100); Potassium 4.1 mmol/L (3.5-5.1); Sodium 140 mmol/L (136-145); Total Protein 6.1 g/dL (6.4-8.2)
[2018-09-17 11:47] LABS: CA 19-9 1047 U/mL (<35)
[2018-09-21] MEDS: Normal Saline Flush 10 ML SYR IVP (08:45)
[2018-09-21 09:46] LABS: Abs Immature Grans 0.54 k/cumm (0.0-0.09); HGB 10.2 g/dL (12.0-15.5); Mean Corp. HGB Concentration 31.9 g/dL (32.0-36.0); Mean Corpuscular Hemoglobin 28.9 pg (27.0-33.0); Mean Corpuscular Volume 90.7 fL (80-95); Mean Platelet Volume 9.3 fL (8.0-11.0); Platelet Count 417 x1000/uL (130-400); RBC 3.53 m/cumm (4.00-5.20); RBC Distribution Width 16.7 % (11.7-14.6); White Blood Cell Count 5.25 k/cumm (4.4-10.8)
[2018-09-21 10:01] LABS: ALT 24 U/L (12-78); AST 15 U/L (15-37); Alkaline Phosphatase 91 U/L (46-116); Anion Gap 7.9 mmol/L (3-11); BUN 13 mg/dL (7-18); Bilirubin, Total 0.2 mg/dL (0.2-1.0); CO2 28.1 mmol/L (21.0-32.0); CREATININE 0.49 mg/dL (0.55-1.02); Chloride 103 mmol/L (98-107); Glucose 130 mg/dL (70-100); Potassium 3.6 mmol/L (3.5-5.1); Sodium 139 mmol/L (136-145); Total Protein 5.9 g/dL (6.4-8.2)
[2018-09-21 10:15] LABS: Absolute Neutrophil Count 2.68 k/cumm (1.2-6.7)
[2018-09-21 10:16] LABS: Absolute Lymphocyte Count 1.84 k/cumm (1.2-3.4); Absolute Monocyte Count 0.37 k/cumm (0.11-0.7); Atypical Lymphocytes % 1
[2018-09-21 10:17] LABS: Anisocytosis 2+; Diff Comment Manual Differential; Poikilocytes 1+; Schistocytes 1+
== END 2018-09-26 23:59 | disposition home or self-care (01) ==
LOC: INF 01:09
PROVIDERS: PCP Family Medicine; Visit Provider Nurse Practitioner Adult Health
DX: C25.9 Malignant neoplasm of pancreas, unspecified (principal); Z45.2 Encounter for adjustment and management of vascular access device
CPT/HCPCS: 36415; 36591; 80053; 96523; 85025; 86301

== ENCOUNTER 2018-10-12 02:47 | Outpatient (CLI) | payer BC, SELFPAY ==
--- NOTE | 2018-10-12 09:34 | DI.RAD_ITS ---
SYMPTOM/DIAGNOSIS: CANNOT GET BLOOD RETURN, CONFIRM PLACEMENT AND PATENCY, PANCREATIC CA, C25.9 CATHETER PATENCY: Fluoroscopy Time: 7 seconds Fluoroscopy was utilized during the evaluation of the patient's Portacath. The port was accessed and contrast was administered via the port. Contrast is seen to flow away from the tip normally. Blood could be drawn back via the port during the examination. IMPRESSION: Normally functioning Portacath.
[2018-10-12] MEDS: Omnipaque 350 MG/ML 50 ML BTL IJ (09:36)
== END 2018-10-12 03:07 ==
PROVIDERS: PCP Family Medicine; Visit Provider Nurse Practitioner Adult Health
DX: C25.9 Malignant neoplasm of pancreas, unspecified (principal); Z45.2 Encounter for adjustment and management of vascular access device
CPT/HCPCS: 76000; Q9967

== ENCOUNTER 2018-10-26 00:47 | Outpatient (RCR) | payer BC, SELFPAY ==
[2018-09-28] MEDS: Normal Saline Flush 10 ML SYR IVP (10:55)
[2018-09-28 12:14] LABS: ALT 37 U/L (12-78); AST 18 U/L (15-37); Albumin 3.2 g/dL (3.4-5.0); Alkaline Phosphatase 86 U/L (46-116); Anion Gap 8.1 mmol/L (3-11); BUN 16 mg/dL (7-18); Bilirubin, Total 0.1 mg/dL (0.2-1.0); CO2 27.9 mmol/L (21.0-32.0); Calcium 9.3 mg/dL (8.5-10.1); Chloride 103 mmol/L (98-107); Glucose 128 mg/dL (70-100); Potassium 4.4 mmol/L (3.5-5.1); Sodium 139 mmol/L (136-145); Total Protein 5.7 g/dL (6.4-8.2)
[2018-09-28 12:50] LABS: Abs Immature Grans 0.21 k/cumm (0.0-0.09); HCT 29.8 % (36.0-46.0); HGB 9.5 g/dL (12.0-15.5); Mean Corp. HGB Concentration 31.9 g/dL (32.0-36.0); Mean Corpuscular Hemoglobin 29.4 pg (27.0-33.0); Mean Corpuscular Volume 92.3 fL (80-95); Mean Platelet Volume 9.2 fL (8.0-11.0); Platelet Count 147 x1000/uL (130-400); RBC 3.23 m/cumm (4.00-5.20); White Blood Cell Count 3.72 k/cumm (4.4-10.8)
[2018-09-28 13:37] LABS: Absolute Eosinophil Count 0.04 k/cumm (0.0-0.7); Absolute Lymphocyte Count 1.49 k/cumm (1.2-3.4); Absolute Monocyte Count 0.41 k/cumm (0.11-0.7); Absolute Neutrophil Count 1.64 k/cumm (1.2-6.7); Diff Comment Manual Differential
[2018-09-28 13:38] LABS: Anisocytosis 2+
[2018-10-12] MEDS: Normal Saline Flush 10 ML SYR IVP (08:40)
[2018-10-12 09:12] LABS: Abs Immature Grans 0.05 k/cumm (0.0-0.09); Absolute Basophil Count 0.04 k/cumm (0.0-0.2); Absolute Eosinophil Count 0.37 k/cumm (0.0-0.7); Absolute Lymphocyte Count 1.29 k/cumm (1.2-3.4); Absolute Monocyte Count 0.88 k/cumm (0.11-0.7); Absolute Neutrophil Count 3.66 k/cumm (1.2-6.7); Basophils % 0.6; Eosinophils % 5.9; HCT 31.4 % (36.0-46.0); HGB 9.8 g/dL (12.0-15.5); Immature Grans % 0.8; Lymphocytes % 20.5; Mean Corp. HGB Concentration 31.2 g/dL (32.0-36.0); Mean Corpuscular Hemoglobin 29.1 pg (27.0-33.0); Mean Corpuscular Volume 93.2 fL (80-95); Mean Platelet Volume 9.5 fL (8.0-11.0); Neutrophils % 58.2; Platelet Count 433 x1000/uL (130-400); RBC 3.37 m/cumm (4.00-5.20); RBC Distribution Width 19.2 % (11.7-14.6); White Blood Cell Count 6.29 k/cumm (4.4-10.8)
[2018-10-12 09:26] LABS: ALT 37 U/L (12-78); AST 19 U/L (15-37); Albumin 3.2 g/dL (3.4-5.0); Alkaline Phosphatase 88 U/L (46-116); Anion Gap 6.8 mmol/L (3-11); BUN 13 mg/dL (7-18); Bilirubin, Total 0.2 mg/dL (0.2-1.0); CO2 27.2 mmol/L (21.0-32.0); CREATININE 0.49 mg/dL (0.55-1.02); Calcium 9.1 mg/dL (8.5-10.1); Chloride 104 mmol/L (98-107); Glucose 126 mg/dL (70-100); Potassium 4.1 mmol/L (3.5-5.1); Sodium 138 mmol/L (136-145); Total Protein 6.2 g/dL (6.4-8.2)
[2018-10-12 09:37] LABS: Poikilocytes 2+; Polychromasia Present
[2018-10-15 11:20] LABS: CA 19-9 339 U/mL (<35)
[2018-10-19] MEDS: Normal Saline Flush 10 ML SYR IVP (11:10)
[2018-10-19 11:32] LABS: Abs Immature Grans 0.14 k/cumm (0.0-0.09); Absolute Basophil Count 0.08 k/cumm (0.0-0.2); Absolute Eosinophil Count 0.08 k/cumm (0.0-0.7); Absolute Lymphocyte Count 1.48 k/cumm (1.2-3.4); Absolute Monocyte Count 0.44 k/cumm (0.11-0.7); Absolute Neutrophil Count 1.37 k/cumm (1.2-6.7); Basophils % 2.2; Eosinophils % 2.2; HCT 30.2 % (36.0-46.0); HGB 9.5 g/dL (12.0-15.5); Lymphocytes % 41.2; Mean Corp. HGB Concentration 31.5 g/dL (32.0-36.0); Mean Corpuscular Volume 92.1 fL (80-95); Monocytes % 12.3; Neutrophils % 38.2; Platelet Count 439 x1000/uL (130-400); RBC 3.28 m/cumm (4.00-5.20); RBC Distribution Width 18.5 % (11.7-14.6); White Blood Cell Count 3.59 k/cumm (4.4-10.8)
[2018-10-19 11:51] LABS: ALT 56 U/L (12-78); AST 27 U/L (15-37); Albumin 3.2 g/dL (3.4-5.0); Alkaline Phosphatase 88 U/L (46-116); Anion Gap 7.2 mmol/L (3-11); BUN 15 mg/dL (7-18); Bilirubin, Total 0.2 mg/dL (0.2-1.0); CO2 28.8 mmol/L (21.0-32.0); CREATININE 0.48 mg/dL (0.55-1.02); Calcium 9.2 mg/dL (8.5-10.1); Chloride 104 mmol/L (98-107); Glucose 129 mg/dL (70-100); Potassium 4.3 mmol/L (3.5-5.1); Sodium 140 mmol/L (136-145); Total Protein 6.1 g/dL (6.4-8.2)
[2018-10-19 11:59] LABS: Anisocytosis 2+; Macrocytosis 1+; Schistocytes 2+; Tear Drop Cells 2+
[2018-10-22 10:51] LABS: CA 19-9 273 U/mL (<35)
[2018-10-26] MEDS: Normal Saline Flush 10 ML SYR IVP (08:10)
[2018-10-26 09:23] LABS: ALT 46 U/L (12-78); AST 21 U/L (15-37); Alkaline Phosphatase 76 U/L (46-116); Anion Gap 5.2 mmol/L (3-11); BUN 15 mg/dL (7-18); Bilirubin, Total 0.2 mg/dL (0.2-1.0); CO2 28.8 mmol/L (21.0-32.0); CREATININE 0.49 mg/dL (0.55-1.02); Calcium 8.8 mg/dL (8.5-10.1); Chloride 105 mmol/L (98-107); Glucose 126 mg/dL (70-100); Potassium 4.1 mmol/L (3.5-5.1); Sodium 139 mmol/L (136-145)
[2018-10-26 09:30] LABS: Abs Immature Grans 0.09 k/cumm (0.0-0.09); HCT 27.9 % (36.0-46.0); Mean Corp. HGB Concentration 32.3 g/dL (32.0-36.0); Mean Corpuscular Hemoglobin 29.7 pg (27.0-33.0); Mean Corpuscular Volume 92.1 fL (80-95); Mean Platelet Volume 9.6 fL (8.0-11.0); Platelet Count 149 x1000/uL (130-400); RBC 3.03 m/cumm (4.00-5.20); RBC Distribution Width 19.2 % (11.7-14.6)
[2018-10-26 09:31] LABS: Absolute Lymphocyte Count 1.34 k/cumm (1.2-3.4); Absolute Neutrophil Count 1.18 k/cumm (1.2-6.7); Atypical Lymphocytes % 1
[2018-10-26 09:32] LABS: Absolute Basophil Count 0.06 k/cumm (0.0-0.2); Absolute Monocyte Count 0.17 k/cumm (0.11-0.7)
[2018-10-26 09:33] LABS: Anisocytosis 2+; Diff Comment Manual Differential; Hypochromasia 2+; Macrocytosis 1+; Microcytosis 1+; Ovalocytes 2+; Polychromasia Present
[2018-10-26 09:34] LABS: Poikilocytes 2+; Tear Drop Cells 2+
== END 2018-10-26 23:59 | disposition home or self-care (01) ==
LOC: INF 00:47
PROVIDERS: PCP Family Medicine; Visit Provider Nurse Practitioner Adult Health
DX: C25.9 Malignant neoplasm of pancreas, unspecified (principal); Z45.9 Encounter for adjustment and management of unspecified implanted device
CPT/HCPCS: 36591; 80053; 85025; 86301

== ENCOUNTER 2018-11-05 01:04 | Outpatient (CLI) | payer BC, SELFPAY ==
[2018-11-05] MEDS: Omnipaque 350 MG/ML 50 ML BTL PO (10:45)
[2018-11-05] MEDS: Omnipaque 350 MG/ML 100 ML BTL IV (12:47)
--- NOTE | 2018-11-05 12:48 | DI.CT_ITS ---
SYMPTOM/DIAGNOSIS: H/O PANCREATIC CA. TREATMENT RESTAGING EXAM CT CHEST, ABDOMEN AND PELVIS: Comparison is made with abdomen and pelvic CT dated 22 Jul 2018. No previous chest CT is available for comparison. Images were performed from the clavicles through the ischial tuberosities after IV and oral contrast. CHEST CT: There are moderate underlying changes of central lobular emphysema. There is a 5 x 7 mm nodule at the anterior right lung base which has increased in size when compared with the previous exam. There are areas of bilateral presumed atelectasis not seen on the previous exam posteriorly at the lung bases. There is no evidence of adenopathy. IMPRESSION: Increase in size of nodule at the left anterior lung base, measuring 5 x [address]: There has been significant interval reduction in size of previously noted pancreatic mass. There is no discrete measurable mass on today's exam. There is some residual stranding in the mesentery in the previous location of the mass. The tail of the pancreas is again noted to be atrophic and shows ductal dilatation. Previously the splenic vein showed thrombosis. The splenic vein is not visible as it courses adjacent to the pancreas on the current exam. There are left upper quadrant varicosities are present consistent with collaterals. The spleen is unchanged in size and appearance. There is now thickening vs contraction of the antrum of the stomach. There are stable tiny hypodensities in the liver. Renal cysts are again noted. The adrenals appear normal. No adenopathy is seen. Diverticulosis is noted of the sigmoid colon. There is no small bowel dilatation or inflammatory change. Severe atherosclerotic changes with luminal narrowing of the abdominal aorta are again noted. There is no ascites. No lytic or blastic bony lesions are seen. IMPRESSION: Interval decrease in size of pancreatic mass, not discretely measurable. 2. Increased size of nodule at the left anterior lower lobe. 3. Splenic vein occlusion with collateral formation. There is no evidence of splenic infarct.
== END 2018-11-05 01:24 ==
PROVIDERS: PCP Family Medicine; Visit Provider Nurse Practitioner Adult Health
DX: R91.1 Solitary pulmonary nodule (principal); I82.890 Acute embolism and thrombosis of other specified veins; Z85.07 Personal history of malignant neoplasm of pancreas; Z12.89 Encounter for screening for malignant neoplasm of other sites
CPT/HCPCS: 74177; 71260; J3490; Q9967

== ENCOUNTER 2018-11-23 01:31 | Outpatient (RCR) | payer BC, SELFPAY ==
[2018-11-05] MEDS: Normal Saline Flush 10 ML SYR IVP (10:05)
[2018-11-05] MEDS: Heparin 500 UNITS/5 ML SYRINGE IV (11:21)
[2018-11-09 08:23] LABS: Abs Immature Grans 0.09 k/cumm (0.0-0.09); Absolute Basophil Count 0.06 k/cumm (0.0-0.2); Absolute Eosinophil Count 0.46 k/cumm (0.0-0.7); Absolute Lymphocyte Count 1.36 k/cumm (1.2-3.4); Absolute Monocyte Count 1.25 k/cumm (0.11-0.7); Absolute Neutrophil Count 4.91 k/cumm (1.2-6.7); Basophils % 0.7; Eosinophils % 5.7; HCT 31.1 % (36.0-46.0); HGB 9.7 g/dL (12.0-15.5); Immature Grans % 1.1; Lymphocytes % 16.7; Mean Corp. HGB Concentration 31.2 g/dL (32.0-36.0); Mean Corpuscular Hemoglobin 28.9 pg (27.0-33.0); Mean Corpuscular Volume 92.6 fL (80-95); Mean Platelet Volume 9.1 fL (8.0-11.0); Monocytes % 15.4; Neutrophils % 60.4; Platelet Count 595 x1000/uL (130-400); RBC 3.36 m/cumm (4.00-5.20); RBC Distribution Width 20.4 % (11.7-14.6); White Blood Cell Count 8.13 k/cumm (4.4-10.8)
[2018-11-09 08:38] LABS: Anisocytosis 2+; Diff Comment RBC Morph Reviewed; Hypochromasia 1+; Ovalocytes 2+; Schistocytes 1+
[2018-11-09 08:39] LABS: Poikilocytes 2+
[2018-11-09 08:43] LABS: ALT 25 U/L (12-78); AST 18 U/L (15-37); Albumin 3.1 g/dL (3.4-5.0); Alkaline Phosphatase 85 U/L (46-116); Anion Gap 8.5 mmol/L (3-11); BUN 12 mg/dL (7-18); Bilirubin, Total 0.2 mg/dL (0.2-1.0); CO2 27.5 mmol/L (21.0-32.0); CREATININE 0.57 mg/dL (0.55-1.02); Calcium 9.4 mg/dL (8.5-10.1); Chloride 103 mmol/L (98-107); Glucose 122 mg/dL (70-100); Potassium 4.1 mmol/L (3.5-5.1); Sodium 139 mmol/L (136-145); Total Protein 6.4 g/dL (6.4-8.2)
[2018-11-09] MEDS: Normal Saline Flush 10 ML SYR IVP (09:15)
[2018-11-12 10:29] LABS: CA 19-9 128 U/mL (<35)
[2018-11-16] MEDS: Normal Saline Flush 10 ML SYR IVP (08:19)
[2018-11-16 08:31] LABS: Abs Immature Grans 0.22 k/cumm (0.0-0.09); HCT 30.8 % (36.0-46.0); HGB 9.7 g/dL (12.0-15.5); Mean Corp. HGB Concentration 31.5 g/dL (32.0-36.0); Mean Corpuscular Volume 91.9 fL (80-95); Mean Platelet Volume 8.7 fL (8.0-11.0); Platelet Count 561 x1000/uL (130-400); RBC 3.35 m/cumm (4.00-5.20)
[2018-11-16 08:50] LABS: ALT 45 U/L (12-78); AST 23 U/L (15-37); Albumin 3.3 g/dL (3.4-5.0); Alkaline Phosphatase 88 U/L (46-116); Anion Gap 5.7 mmol/L (3-11); BUN 16 mg/dL (7-18); Bilirubin, Total 0.2 mg/dL (0.2-1.0); CO2 30.3 mmol/L (21.0-32.0); CREATININE 0.58 mg/dL (0.55-1.02); Calcium 9.6 mg/dL (8.5-10.1); Chloride 102 mmol/L (98-107); Glucose 114 mg/dL (70-100); Potassium 4.1 mmol/L (3.5-5.1); Sodium 138 mmol/L (136-145); Total Protein 6.5 g/dL (6.4-8.2)
[2018-11-16 08:52] LABS: Absolute Basophil Count 0.08 k/cumm (0.0-0.2); Absolute Lymphocyte Count 1.18 k/cumm (1.2-3.4); Absolute Monocyte Count 0.72 k/cumm (0.11-0.7); Absolute Neutrophil Count 1.63 k/cumm (1.2-6.7); Atypical Lymphocytes % 1
[2018-11-16 08:53] LABS: Anisocytosis 3+; Diff Comment Manual Differential; Hypochromasia 2+; Nucleated RBC 2 /100WBC
[2018-11-16 08:54] LABS: Poikilocytes 2+
[2018-11-23] MEDS: Normal Saline Flush 10 ML SYR IVP (08:15)
[2018-11-23 08:25] LABS: Abs Immature Grans 0.04 k/cumm (0.0-0.09); Absolute Basophil Count 0.03 k/cumm (0.0-0.2); Absolute Eosinophil Count 0.07 k/cumm (0.0-0.7); Absolute Lymphocyte Count 1.09 k/cumm (1.2-3.4); Absolute Monocyte Count 0.45 k/cumm (0.11-0.7); Absolute Neutrophil Count 1.34 k/cumm (1.2-6.7); Eosinophils % 2.3; HCT 30.3 % (36.0-46.0); HGB 9.6 g/dL (12.0-15.5); Immature Grans % 1.3; Lymphocytes % 36.1; Mean Corp. HGB Concentration 31.7 g/dL (32.0-36.0); Mean Corpuscular Hemoglobin 29.2 pg (27.0-33.0); Mean Corpuscular Volume 92.1 fL (80-95); Mean Platelet Volume 8.9 fL (8.0-11.0); Monocytes % 14.9; Neutrophils % 44.4; Platelet Count 146 x1000/uL (130-400); RBC 3.29 m/cumm (4.00-5.20); RBC Distribution Width 20.6 % (11.7-14.6); White Blood Cell Count 3.02 k/cumm (4.4-10.8)
[2018-11-23 08:35] LABS: ALT 70 U/L (12-78); AST 25 U/L (15-37); Albumin 3.3 g/dL (3.4-5.0); Alkaline Phosphatase 89 U/L (46-116); Anion Gap 6.3 mmol/L (3-11); BUN 13 mg/dL (7-18); Bilirubin, Total 0.2 mg/dL (0.2-1.0); CO2 29.7 mmol/L (21.0-32.0); CREATININE 0.56 mg/dL (0.55-1.02); Calcium 9.8 mg/dL (8.5-10.1); Chloride 101 mmol/L (98-107); Glucose 119 mg/dL (70-100); Potassium 4.3 mmol/L (3.5-5.1); Sodium 137 mmol/L (136-145); Total Protein 6.5 g/dL (6.4-8.2)
[2018-11-23 08:41] LABS: Anisocytosis 2+; Diff Comment Diff Reviewed
[2018-11-23 08:42] LABS: Poikilocytes 2+; Polychromasia Present
== END 2018-11-26 23:59 | disposition home or self-care (01) ==
LOC: INF 01:31
PROVIDERS: PCP Family Medicine; Visit Provider Nurse Practitioner Adult Health
DX: C25.9 Malignant neoplasm of pancreas, unspecified (principal); Z45.2 Encounter for adjustment and management of vascular access device
CPT/HCPCS: 36591; 80053; 96523; 85025; 86301

== ENCOUNTER 2018-12-14 01:09 | Outpatient (RCR) | payer BC, SELFPAY ==
[2018-12-07] MEDS: Normal Saline Flush 10 ML SYR IVP (09:24)
[2018-12-07 09:27] LABS: Abs Immature Grans 0.09 k/cumm (0.0-0.09); Absolute Basophil Count 0.09 k/cumm (0.0-0.2); Absolute Eosinophil Count 0.53 k/cumm (0.0-0.7); Absolute Monocyte Count 1.12 k/cumm (0.11-0.7); Absolute Neutrophil Count 3.85 k/cumm (1.2-6.7); Basophils % 1.3; Eosinophils % 7.5; HCT 32.4 % (36.0-46.0); Immature Grans % 1.3; Lymphocytes % 19.8; Mean Corp. HGB Concentration 30.9 g/dL (32.0-36.0); Mean Corpuscular Hemoglobin 28.2 pg (27.0-33.0); Mean Corpuscular Volume 91.3 fL (80-95); Mean Platelet Volume 9.2 fL (8.0-11.0); Monocytes % 15.8; Neutrophils % 54.3; Platelet Count 533 x1000/uL (130-400); RBC 3.55 m/cumm (4.00-5.20); RBC Distribution Width 20.9 % (11.7-14.6); White Blood Cell Count 7.08 k/cumm (4.4-10.8)
[2018-12-07 09:43] LABS: ALT 34 U/L (12-78); AST 18 U/L (15-37); Albumin 3.3 g/dL (3.4-5.0); Alkaline Phosphatase 109 U/L (46-116); Anion Gap 8.1 mmol/L (3-11); BUN 14 mg/dL (7-18); Bilirubin, Total 0.2 mg/dL (0.2-1.0); CO2 28.9 mmol/L (21.0-32.0); CREATININE 0.64 mg/dL (0.55-1.02); Chloride 104 mmol/L (98-107); Glucose 105 mg/dL (70-100); Potassium 4.1 mmol/L (3.5-5.1); Sodium 141 mmol/L (136-145); Total Protein 6.7 g/dL (6.4-8.2)
[2018-12-10 10:11] LABS: CA 19-9 66 U/mL (<35)
[2018-12-14] MEDS: Normal Saline Flush 10 ML SYR IVP (08:55)
[2018-12-14 09:20] LABS: HCT 31.9 % (36.0-46.0); HGB 9.8 g/dL (12.0-15.5); Mean Corp. HGB Concentration 30.7 g/dL (32.0-36.0); Mean Corpuscular Hemoglobin 28.1 pg (27.0-33.0); Mean Corpuscular Volume 91.4 fL (80-95); Mean Platelet Volume 8.8 fL (8.0-11.0); Platelet Count 512 x1000/uL (130-400); RBC 3.49 m/cumm (4.00-5.20); RBC Distribution Width 20.7 % (11.7-14.6); White Blood Cell Count 3.67 k/cumm (4.4-10.8)
[2018-12-14 09:38] LABS: Absolute Basophil Count 0.04 k/cumm (0.0-0.2); Absolute Eosinophil Count 0.07 k/cumm (0.0-0.7); Absolute Lymphocyte Count 1.91 k/cumm (1.2-3.4); Absolute Monocyte Count 0.37 k/cumm (0.11-0.7); Absolute Neutrophil Count 1.14 k/cumm (1.2-6.7); Anisocytosis 3+; Diff Comment Manual Differential; Hypochromasia 2+
[2018-12-14 09:39] LABS: Macrocytosis 1+; Microcytosis 1+; Ovalocytes 2+; Polychromasia Present
[2018-12-14 09:40] LABS: Poikilocytes 3+; Schistocytes 1+
[2018-12-14 09:41] LABS: ALT 82 U/L (12-78); AST 30 U/L (15-37); Albumin 3.3 g/dL (3.4-5.0); Alkaline Phosphatase 93 U/L (46-116); Anion Gap 6.7 mmol/L (3-11); BUN 12 mg/dL (7-18); Bilirubin, Total 0.1 mg/dL (0.2-1.0); CO2 30.3 mmol/L (21.0-32.0); Calcium 9.5 mg/dL (8.5-10.1); Chloride 102 mmol/L (98-107); Glucose 104 mg/dL (70-100); Potassium 4.3 mmol/L (3.5-5.1); Sodium 139 mmol/L (136-145); Total Protein 6.5 g/dL (6.4-8.2)
== END 2018-12-27 23:59 | disposition home or self-care (01) ==
LOC: INF 01:09
PROVIDERS: PCP Family Medicine; Visit Provider Nurse Practitioner Adult Health
DX: C25.9 Malignant neoplasm of pancreas, unspecified (principal); Z45.2 Encounter for adjustment and management of vascular access device
CPT/HCPCS: 36591; 80053; 85025; 86301

== ENCOUNTER 2018-12-28 00:36 | Outpatient (RCR) | payer BC, SELFPAY ==
[2018-12-28] MEDS: Normal Saline Flush 10 ML SYR IVP (09:36)
[2018-12-28 09:53] LABS: Abs Immature Grans 0.03 k/cumm (0.0-0.09); Absolute Basophil Count 0.05 k/cumm (0.0-0.2); Absolute Eosinophil Count 0.45 k/cumm (0.0-0.7); Absolute Lymphocyte Count 1.56 k/cumm (1.2-3.4); Absolute Monocyte Count 0.81 k/cumm (0.11-0.7); Absolute Neutrophil Count 3.12 k/cumm (1.2-6.7); Basophils % 0.8; Eosinophils % 7.5; HCT 33.2 % (36.0-46.0); HGB 10.2 g/dL (12.0-15.5); Immature Grans % 0.5; Lymphocytes % 25.9; Mean Corp. HGB Concentration 30.7 g/dL (32.0-36.0); Mean Corpuscular Hemoglobin 27.8 pg (27.0-33.0); Mean Corpuscular Volume 90.5 fL (80-95); Mean Platelet Volume 9.8 fL (8.0-11.0); Monocytes % 13.5; Neutrophils % 51.8; RBC 3.67 m/cumm (4.00-5.20); RBC Distribution Width 21.5 % (11.7-14.6); White Blood Cell Count 6.02 k/cumm (4.4-10.8)
[2018-12-28 10:07] LABS: ALT 40 U/L (12-78); AST 20 U/L (15-37); Albumin 3.3 g/dL (3.4-5.0); Alkaline Phosphatase 93 U/L (46-116); Anion Gap 6.4 mmol/L (3-11); BUN 14 mg/dL (7-18); Bilirubin, Total 0.3 mg/dL (0.2-1.0); CO2 28.6 mmol/L (21.0-32.0); CREATININE 0.73 mg/dL (0.55-1.02); Chloride 105 mmol/L (98-107); Glucose 109 mg/dL (70-100); Potassium 4.1 mmol/L (3.5-5.1); Sodium 140 mmol/L (136-145); Total Protein 6.6 g/dL (6.4-8.2)
[2018-12-28 10:12] LABS: Calcium 9.4 mg/dL (8.5-10.1)
[2018-12-28 10:16] LABS: Anisocytosis 2+; Diff Comment Diff Reviewed; Hypochromasia 2+; Platelet Count 224 x1000/uL (130-400); Polychromasia Present
[2018-12-28 10:17] LABS: Poikilocytes 2+
[2018-12-31 10:51] LABS: CA 19-9 63 U/mL (<35)
== END 2019-01-24 23:59 | disposition home or self-care (01) ==
LOC: INF 00:36
PROVIDERS: PCP Family Medicine; Visit Provider Nurse Practitioner Adult Health
DX: C25.9 Malignant neoplasm of pancreas, unspecified (principal); Z45.2 Encounter for adjustment and management of vascular access device
CPT/HCPCS: 36591; 80053; 85025; 86301

== ENCOUNTER 2019-02-15 01:31 | Outpatient (RCR) | payer BC, SELFPAY ==
[2019-02-01] MEDS: Normal Saline Flush 10 ML SYR IVP (09:06)
[2019-02-01 09:33] LABS: Abs Immature Grans 0.02 k/cumm (0.0-0.09); Absolute Basophil Count 0.04 k/cumm (0.0-0.2); Absolute Eosinophil Count 0.25 k/cumm (0.0-0.7); Absolute Lymphocyte Count 1.34 k/cumm (1.2-3.4); Absolute Monocyte Count 0.69 k/cumm (0.11-0.7); Absolute Neutrophil Count 3.02 k/cumm (1.2-6.7); Basophils % 0.7; Eosinophils % 4.7; HCT 35.1 % (36.0-46.0); HGB 11.2 g/dL (12.0-15.5); Immature Grans % 0.4; Mean Corp. HGB Concentration 31.9 g/dL (32.0-36.0); Mean Corpuscular Hemoglobin 28.3 pg (27.0-33.0); Mean Corpuscular Volume 88.6 fL (80-95); Mean Platelet Volume 9.9 fL (8.0-11.0); Monocytes % 12.9; Neutrophils % 56.3; Platelet Count 236 x1000/uL (130-400); RBC 3.96 m/cumm (4.00-5.20); RBC Distribution Width 19.9 % (11.7-14.6); White Blood Cell Count 5.36 k/cumm (4.4-10.8)
[2019-02-01 09:46] LABS: ALT 19 U/L (12-78); AST 14 U/L (15-37); Albumin 3.5 g/dL (3.4-5.0); Alkaline Phosphatase 100 U/L (46-116); Anion Gap 8.1 mmol/L (3-11); BUN 18 mg/dL (7-18); Bilirubin, Total 0.2 mg/dL (0.2-1.0); CO2 28.9 mmol/L (21.0-32.0); CREATININE 0.59 mg/dL (0.55-1.02); Calcium 9.3 mg/dL (8.5-10.1); Chloride 102 mmol/L (98-107); Glucose 108 mg/dL (70-100); Potassium 4.2 mmol/L (3.5-5.1); Sodium 139 mmol/L (136-145); Total Protein 6.8 g/dL (6.4-8.2)
[2019-02-01 09:59] LABS: Diff Comment RBC Morph Reviewed
[2019-02-01 10:00] LABS: Anisocytosis 2+; Hypochromasia 2+; Microcytosis 1+
[2019-02-01 10:01] LABS: Poikilocytes 2+; Schistocytes 1+
[2019-02-04 10:11] LABS: CA 19-9 79 U/mL (<35)
[2019-02-15] MEDS: Normal Saline Flush 10 ML SYR IVP (11:10)
[2019-02-15 11:34] LABS: Abs Immature Grans 0.01 k/cumm (0.0-0.09); Absolute Basophil Count 0.02 k/cumm (0.0-0.2); Absolute Eosinophil Count 0.18 k/cumm (0.0-0.7); Absolute Lymphocyte Count 1.22 k/cumm (1.2-3.4); Absolute Monocyte Count 0.57 k/cumm (0.11-0.7); Absolute Neutrophil Count 3.28 k/cumm (1.2-6.7); Basophils % 0.4; Eosinophils % 3.4; HCT 34.4 % (36.0-46.0); HGB 11.1 g/dL (12.0-15.5); Immature Grans % 0.2; Lymphocytes % 23.1; Mean Corp. HGB Concentration 32.3 g/dL (32.0-36.0); Mean Corpuscular Hemoglobin 28.4 pg (27.0-33.0); Mean Platelet Volume 9.9 fL (8.0-11.0); Monocytes % 10.8; Neutrophils % 62.1; Platelet Count 173 x1000/uL (130-400); RBC 3.91 m/cumm (4.00-5.20); RBC Distribution Width 18.9 % (11.7-14.6); White Blood Cell Count 5.28 k/cumm (4.4-10.8)
[2019-02-15 11:40] LABS: ALT 20 U/L (12-78); AST 16 U/L (15-37); Albumin 3.6 g/dL (3.4-5.0); Alkaline Phosphatase 93 U/L (46-116); Anion Gap 5.3 mmol/L (3-11); BUN 11 mg/dL (7-18); Bilirubin, Total 0.2 mg/dL (0.2-1.0); CO2 28.7 mmol/L (21.0-32.0); CREATININE 0.71 mg/dL (0.55-1.02); Calcium 9.5 mg/dL (8.5-10.1); Chloride 103 mmol/L (98-107); Glucose 168 mg/dL (70-100); Potassium 4.1 mmol/L (3.5-5.1); Sodium 137 mmol/L (136-145); Total Protein 6.7 g/dL (6.4-8.2)
[2019-02-15 11:45] LABS: Diff Comment RBC Morph Reviewed
[2019-02-15 11:46] LABS: Anisocytosis 2+; Hypochromasia 2+; Poikilocytes 2+; Schistocytes 1+
[2019-02-18 10:53] LABS: CA 19-9 111 U/mL (<35)
== END 2019-02-24 23:59 | disposition home or self-care (01) ==
LOC: INF 01:31
PROVIDERS: PCP Family Medicine; Visit Provider Nurse Practitioner Adult Health
DX: C25.9 Malignant neoplasm of pancreas, unspecified (principal); Z45.2 Encounter for adjustment and management of vascular access device
CPT/HCPCS: 36591; 80053; 85025; 86301

== ENCOUNTER 2019-03-13 12:24 | Emergency (ER) | payer BC, SELFPAY ==
--- NOTE | 2019-03-13 12:31 | W.ED.GENAD ---
Discharge Plan Disposition Patient Disposition: [facility] Condition: Stable Discharge Details Chief Complaint: Abd Prob Clinical Impression: Contrast dye induced nephropathy, Acute hypokalemia, Hypomagnesemia Primary Care Provider: Nandini Lopes ED Provider: Anand Colby Home Meds and New Rx's Prescriptions: No Action ranitidine HCl 300 mg capsule 300 mg PO DAILY RF: 0 aspirin 81 mg tablet,delayed release (DR/EC) 81 mg PO DAILY RF: 0 pantoprazole [Protonix] 40 mg tablet,delayed release (DR/EC) 40 mg PO DAILY Qty: 90 RF: 0 trazodone 50 MG tablet 50 mg PO HS RF: 0 fentanyl 12 mcg/hr patch 72 hour 1 patch TD Q72H MDD 1 patch Qty: 10 RF: 0 verapamil [Calan SR] 180 MG tablet extended release 180 mg PO DAILY RF: 0 bupropion HCl 300 MG tablet extended release 24 hr 300 mg PO QAM RF: 0 ondansetron 4 MG tablet,disintegrating 4 mg PO Q6H PRN (Reason: Nausea) Qty: 10 RF: 0 lorazepam 0.5 MG tablet 1 tab PO PRN PRNRF: 0 Pepto-Bismol Max St 525 MG/15 ML suspension 15 ml PO PRN PRNRF: 0 hydromorphone 4 MG tablet 4 mg PO Q6H Qty: 20 RF: 0 polyethylene glycol 3350 17 GM powder in packet 17 gm PO DAILY PRN PRNRF: 0 bisacodyl 10 MG suppository 10 mg HI DAILY PRN PRNQty: 10 RF: 0 haloperidol lactate 2 MG/ML concentrate 1 mg PO TID PRN PRN (Reason: Nausea) Qty: 1 RF: 1 Eliquis 5 MG tablet 10 mg PO BID 5 Days Qty: 20 RF: 0 Medical Decision Making This is a 63-year-old female with a past medical history of pancreatic cancer who no longer receiving chemotherapy or radiation but did have an electrocautery procedure which I am unfamiliar with performed at [facility] 6 days ago. After the procedure she did have elevations of her transaminases and lipase, however with time she eventually improved, was able to tolerate p.o., and occasional nausea vomiting diarrhea but otherwise felt fine and requested to go home. At home she has been doing well, she has her continued chronic abdominal pain, in conjunction with her nausea mild vomiting mild diarrhea, however of note today she had felt much more fatigued, dizzy, lightheaded, there is concern for dehydration, and oncology and interventional radiology recommended transfer to an very H ED for evaluation of electrolyte abnormality or dehydration needing rehydration. Exam demonstrates no signs of an acute surgical abdomen, she is notably dehydrated, vital signs are notably reassuring with no tachycardia, hypotension, tachypnea or fever. Signs and symptoms concerning for dehydration we will rehydrate, basic labs to look for electrolyte abnormality, and reassess. 4:38 PM Patient's laboratory workup is returned and demonstrates findings that I was not expecting. Patient has a notably elevated creatinine at 4.78, potassium is 2.9, magnesium is low at 1.5. Urinalysis shows no signs of infection or proteinuria. Transaminases are normal, lipase is 98. The patient is still urinating. EKG was ordered and does show questionable U waves, but otherwise benign. No dysrhythmia noted. I did contact [facility] and discussed the case with Dr. Figueroa and Dr Knowles, as well as the nurse practitioner from the interventional radiology group. Apparently there was also a large amount of IV contrast that was utilized for the procedure, which certainly correlates well to the patient's clinical picture suggestive of an acute kidney injury secondary to contrast-induced nephropathy. I did discuss with the team on the phone including the interventional radiology group the patient's abdominal exam, including the lack of significant worsening tenderness and no signs of current acute abdomen, and asked if they wanted additional imaging, they do recommend holding off on any additional imaging at this time. Specialist at [facility] did request that we keep the patient here for the time being for rehydration, and close management, while being in regular contact with them. I did discuss this with our hospitalist Dr. Velasco, and at this time he does not feel comfortable with keeping the patient due to the electrolyte changes, and the notable acute kidney injury, especially in light of his lack of dialysis capabilities here. Patient is urinating at this time, and this was discussed. I did contact [facility] again, discussed the case with them, they have agreed to accept the patient at [facility] for rehydration and further management. I have extensively reviewed the treatment plan with the patient. I have addressed all patient concerns at this time. I have also discussed the plan with the admitting physician and they agree with the current assessment and plan and have agreed to assume responsibility for the patient. All parties demonstrate verbal understanding and agreement with our assessment and plan at this time. EKG 15: 50 Rate 75, intervals normal, sinus rhythm, questionable U waves in V1, no ST elevations or depressions, no Q waves. No T wave inversions. HPI General Date/Time Provider Initiated Documentation: 03/13/19 12:31. HPI Narrative: The day pleasant 63-year-old female with a past medical history of pancreatic cancer near the SMA, who was receiving chemotherapy and radiation but has not received any for quite some time, who presents today for evaluation of symptoms concerning for dehydration. The patient had an electrical cauterization procedure performed by oncology at [facility] roughly 6 days ago, she tolerated the procedure well then, she did have an elevation of her lipase and amylase, was feeling well, and eventually discharged home. She had been doing well at home with occasional nausea vomiting and diarrhea, but she had been able to tolerate some p.o. This is been par for the course for her over the last few months. However today she felt slightly lightheaded, and and weak. Her vomiting and diarrhea had not worsened. She denies any severe worsening of her abdominal pain in general. She denies any other complaints at this time. She is still making urine. She denies any hematemesis, hematochezia, melena, acholic stool. Of note she was on antibiotics postprocedure with Cipro and Flagyl is recently finished this. She denies any other complaints at this time. No additional modifying factors. She did contact [facility] interventional radiology as well as oncology who felt that she is most likely dehydrated and recommended that she come in for rehydration and evaluation. Additionally she denies any syncope, falls, recent trauma. Related Data Home Medications Medication Instructions Recorded Confirmed bupropion HCl 300 mg PO QAM 01/29/13 03/05/19 verapamil [Calan SR] 180 mg PO DAILY 01/29/13 03/05/19 trazodone 50 mg PO HS 11/18/15 03/05/19 ondansetron 4 mg PO Q6H PRN #10 tabef 07/19/18 03/05/19 Pepto-Bismol Max St 15 ml PO PRN PRN 07/22/18 03/05/19 hydromorphone 4 mg PO Q6H #20 tab 07/22/18 03/05/19 lorazepam 1 tab PO PRN PRN 07/22/18 03/05/19 Eliquis 10 mg PO BID 5 Days #20 tab 07/26/18 03/05/19 bisacodyl 10 mg HI DAILY PRN PRN #10 supp 07/26/18 03/05/19 haloperidol lactate 1 mg PO TID PRN PRN #1 btl 07/26/18 03/05/19 polyethylene glycol 3350 17 gm PO DAILY PRN PRN packet 07/26/18 03/05/19 pantoprazole 40 mg tablet,delayed 40 mg PO DAILY #90 tab 08/22/18 03/05/19 release fentanyl 12 mcg/hr transdermal 1 patch TD Q72H #10 each MDD 1 10/02/18 03/05/19 patch patch aspirin 81 mg tablet,delayed 81 mg PO DAILY 03/05/19 03/05/19 release ranitidine 300 mg capsule 300 mg PO DAILY 03/05/19 03/05/19 Previous Rx's Medication Instructions Recorded ondansetron 4 mg PO Q6H PRN #10 tabef 07/19/18 hydromorphone 4 mg PO Q6H #20 tab 07/22/18 Eliquis 10 mg PO BID 5 Days #20 tab 07/26/18 bisacodyl 10 mg HI DAILY PRN PRN #10 supp 07/26/18 haloperidol lactate 1 mg PO TID PRN PRN #1 btl 07/26/18 polyethylene glycol 3350 17 gm PO DAILY PRN PRN packet 07/26/18 pantoprazole 40 mg tablet,delayed 40 mg PO DAILY #90 tab 08/22/18 release fentanyl 12 mcg/hr transdermal 1 patch TD Q72H #10 each MDD 1 10/02/18 patch patch Allergies Allergy/AdvReac Type Severity Reaction Status Date / Time cyclobenzaprine HCl Allergy Intermediate Hives Unverified 03/13/19 12:35 [From Flexeril] tetracycline Allergy Mild Hives Unverified 03/13/19 12:35 Review of Systems Review of Systems All systems reviewed & are unremarkable except as noted in HPI and below PFSH Social History Smoking/Tobacco Use Status: Current every day Tobacco Type: cigarettes Quit status: considering quitting Second Hand Exposure: No Counseling given: provider counseling and counseling >10 minutes Alcohol Intake: former Drug use: Never Adopted: No Caregiver/Support person: Yes Foster care: No Household members: significant other Housing: house Number of Children: 2 number of grandchildren: 3 Education Level: high school Do you need help understanding health information?: Rarely 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 [employer] Pets and animals: Yes What is your relationship status?: How often do you talk on the phone with friends or family?: three or more times per week How often do you get together with friends or relatives?: three or more times per week Panel score (0-1 are the most socially isolated patients): 2 What type of physical activity do you participate in: none Special gillian needs: No Agree to transfusion: Yes Seatbelt use: always Drive intox or ride w/intox rail car driver: No Do you feel safe in your relationship?: Yes Exam Narrative Exam Narrative: 1.Const: Well-nourished, Well-developed, appearing stated age 2.Eyes: PERRL, no conjunctival injection, and symmetrical lids. 3.ENT: Atraumatic external nose and ears. Notably dry mucous may. Neck: Symmetric, trachea midline, No thyromegaly. 4.CVS: +S1/S2, No murmurs or gallops. Peripheral pulses 2+ and equal in all extremities. Brisk capillary refill in all extremities. 5.RESP: Unlabored respiratory effort. Clear to auscultation bilaterally. No wheezes rales or rhonchi 6.GI: Soft,Nondistended, No hepatosplenomegaly. No guarding or rebound. Patient does demonstrate mild tenderness throughout, which she states is not atypical for normal. No evidence of an acute surgical abdomen on exam. 7.MSK: Normocephalic/Atraumatic, Extremities w/o deformity or ttp No cyanosis or clubbing, Normal movement of all extremities 8.Skin: Warm, Dry. No rashes or lesions. 9.Neuro: flakeboard line tender II-XII grossly intact. Sensation grossly intact, no focal neurologic deficits. 10.Psych: (AAO) x3. Appropriate mood and affect
[2019-03-13 12:32] VITALS: BP 145/85; PULSE 83; RESP 14; TEMP 36.7; O2SAT 97
[2019-03-13 13:21] LABS: Abs Immature Grans 0.02 k/cumm (0.0-0.09); Absolute Basophil Count 0.03 k/cumm (0.0-0.2); Absolute Eosinophil Count 0.15 k/cumm (0.0-0.7); Absolute Lymphocyte Count 0.57 k/cumm (1.2-3.4); Absolute Monocyte Count 0.93 k/cumm (0.11-0.7); Absolute Neutrophil Count 6.63 k/cumm (1.2-6.7); Basophils % 0.4; Eosinophils % 1.8; HGB 9.8 g/dL (12.0-15.5); Immature Grans % 0.2; Lymphocytes % 6.8; Mean Corp. HGB Concentration 32.7 g/dL (32.0-36.0); Mean Corpuscular Hemoglobin 28.2 pg (27.0-33.0); Mean Corpuscular Volume 86.5 fL (80-95); Mean Platelet Volume 9.5 fL (8.0-11.0); Monocytes % 11.2; Neutrophils % 79.6; Platelet Count 223 x1000/uL (130-400); RBC 3.47 m/cumm (4.00-5.20); RBC Distribution Width 17.8 % (11.7-14.6); White Blood Cell Count 8.33 k/cumm (4.4-10.8)
[2019-03-13 13:43] LABS: ALT 16 U/L (12-78); AST 19 U/L (15-37); Alkaline Phosphatase 66 U/L (46-116); Anion Gap 10.8 mmol/L (3-11); BUN 25 mg/dL (7-18); Bilirubin, Total 0.4 mg/dL (0.2-1.0); CO2 24.2 mmol/L (21.0-32.0); Calcium 9.2 mg/dL (8.5-10.1); Chloride 101 mmol/L (98-107); Estimated GFR 9.27 (mL/min/1.73m2); Glucose 174 mg/dL (70-100); Lipase 98 U/L (73-393); Sodium 136 mmol/L (136-145); TSH (W/Ref FT4) 1.36 uIU/mL (0.358-3.74); Total Protein 6.3 g/dL (6.4-8.2)
[2019-03-13 13:45] LABS: CREATININE 4.78 mg/dL (0.55-1.02); Potassium 2.9 mmol/L (3.5-5.1)
[2019-03-13] MEDS: ACETAMINOPHEN 1,000 MG/100 ML BTL 400 MG IVPB (13:46)
[2019-03-13] MEDS: Normal Saline 1,000 ML 1000 ML IV (13:46)
[2019-03-13] MEDS: Metoclopramide 10 MG/2 ML VIAL IVP (13:47)
[2019-03-13] MEDS: POTASSIUM CHLORIDE 20 MEQ/100 ML BAG 50 MEQ IVPB (14:58)
[2019-03-13 15:00] LABS: Magnesium 1.5 mg/dL (1.8-2.4)
--- NOTE | 2019-03-13 15:38 | ED.GENADUL_ITS ---
Discharge Plan Disposition Patient Disposition: [facility] Condition: Stable Discharge Details Chief Complaint: Abd Prob Clinical Impression: Contrast dye induced nephropathy, Acute hypokalemia, Hypomagnesemia Primary Care Provider: Nandini Lopes ED Provider: Anand Colby Home Meds and New Rx's Prescriptions: No Action ranitidine HCl 300 mg capsule 300 mg PO DAILY RF: 0 aspirin 81 mg tablet,delayed release (DR/EC) 81 mg PO DAILY RF: 0 pantoprazole [Protonix] 40 mg tablet,delayed release (DR/EC) 40 mg PO DAILY Qty: 90 RF: 0 trazodone 50 MG tablet 50 mg PO HS RF: 0 fentanyl 12 mcg/hr patch 72 hour 1 patch TD Q72H MDD 1 patch Qty: 10 RF: 0 verapamil [Calan SR] 180 MG tablet extended release 180 mg PO DAILY RF: 0 bupropion HCl 300 MG tablet extended release 24 hr 300 mg PO QAM RF: 0 ondansetron 4 MG tablet,disintegrating 4 mg PO Q6H PRN (Reason: Nausea) Qty: 10 RF: 0 lorazepam 0.5 MG tablet 1 tab PO PRN PRNRF: 0 Pepto-Bismol Max St 525 MG/15 ML suspension 15 ml PO PRN PRNRF: 0 hydromorphone 4 MG tablet 4 mg PO Q6H Qty: 20 RF: 0 polyethylene glycol 3350 17 GM powder in packet 17 gm PO DAILY PRN PRNRF: 0 bisacodyl 10 MG suppository 10 mg [place] DAILY PRN PRNQty: 10 RF: 0 haloperidol lactate 2 MG/ML concentrate 1 mg PO TID PRN PRN (Reason: Nausea) Qty: 1 RF: 1 Eliquis 5 MG tablet 10 mg PO BID 5 Days Qty: 20 RF: 0 Medical Decision Making This is a 63-year-old female with a past medical history of pancreatic cancer who no longer receiving chemotherapy or radiation but did have an electrocautery procedure which I am unfamiliar with performed at [facility] 6 days ago. After the procedure she did have elevations of her transaminases and lipase, however with time she eventually improved, was able to tolerate p.o., and occasional nausea vomiting diarrhea but otherwise felt fine and requested to go home. At home she has been doing well, she has her continued chronic abdominal pain, in conjunction with her nausea mild vomiting mild diarrhea, however of note today she had felt much more fatigued, dizzy, lightheaded, there is concern for dehydration, and oncology and interventional radiology recommended transfer to an very H ED for evaluation of electrolyte abnormality or dehydration needing rehydration. Exam demonstrates no signs of an acute surgical abdomen, she is notably dehydrated, vital signs are notably reassuring with no tachycardia, hypotension, tachypnea or fever. Signs and symptoms concerning for dehydration we will rehydrate, basic labs to look for electrolyte abnormality, and reassess. 4:38 PM Patient's laboratory workup is returned and demonstrates findings that I was not expecting. Patient has a notably elevated creatinine at 4.78, potassium is 2.9, magnesium is low at 1.5. Urinalysis shows no signs of infection or proteinuria. Transaminases are normal, lipase is 98. The patient is still urinating. EKG was ordered and does show questionable U waves, but otherwise benign. No dysrhythmia noted. I did contact [facility] and discussed the case with Dr. Figueroa and Dr Knowles, as well as the nurse practitioner from the interventional radiology group. Apparently there was also a large amount of IV contrast that was utilized for the procedure, which certainly correlates well to the patient's clinical picture suggestive of an acute kidney injury secondary to contrast- induced nephropathy. I did discuss with the team on the phone including the interventional radiology group the patient's abdominal exam, including the lack of significant worsening tenderness and no signs of current acute abdomen, and asked if they wanted additional imaging, they do recommend holding off on any additional imaging at this time. Specialist at [facility] did request that we keep the patient here for the time being for rehydration, and close management, while being in regular contact with them. I did discuss this with our hospitalist Dr. Velasco, and at this time he does not feel comfortable with keeping the patient due to the electrolyte changes, and the notable acute kidney injury, especially in light of his lack of dialysis capabilities here. Patient is urinating at this time, and this was discussed. I did contact [facility] again, discussed the case with them, they have agreed to accept the patient at [facility] for rehydration and further management. I have extensively reviewed the treatment plan with the patient. I have addressed all patient concerns at this time. I have also discussed the plan with the admitting physician and they agree with the current assessment and plan and have agreed to assume r esponsibility for the patient. All parties demonstrate verbal understanding and agreement with our assessment and plan at this time. EKG 15: 50 Rate 75, intervals normal, sinus rhythm, questionable U waves in V1, no ST elevations or depressions, no Q waves. No T wave inversions. HPI General Date/Time Provider Initiated Documentation: 03/13/19 12:31 . HPI Narrative: The day pleasant 63-year-old female with a past medical history of pancreatic cancer near the SMA, who was receiving chemotherapy and radiation but has not received any for quite some time, who presents today for evaluation of symptoms concerning for dehydration. The patient had an electrical cauteriza tion procedure performed by oncology at [facility] roughly 6 days ago, she tolerated the procedure well then, she did have an elevation of her lipase and amylase, was feeling well, and eventually discharged home. She had been doing well at home with occasional nausea vomiting and diarrhea, but she had been able to tolerate some p.o. This is been par for the course for her over the last few months. However today she felt slightly lightheaded, and and weak. Her vomiting and diarrhea had not worsened. She denies any severe worsening of her abdominal pain in general. She denies any other complaints at this time. She is still making urine. She denies any hematemesis, hematochezia, melena, acholic stool. Of note she was on antibiotics postprocedure with Cipro and Flagyl is recently finished this. She denies any other complaints at this time. No additional modifying factors. She did contact [facility] interventional radiology as well as oncology who felt that she is most likely dehydrated and recommended that she come in for rehydration and evaluation. Additionally she denies any syncope, falls, recent trauma. Related Data Home Medications Medication Instructions Recorded Confirmed bupropion HCl 300 mg PO QAM 01/29/13 03/05/19 verapamil [Calan SR] 180 mg PO DAILY 01/29/13 03/05/19 trazodone 50 mg PO HS 11/18/15 03/05/19 ondansetron 4 mg PO Q6H PRN #10 tabef 07/19/18 03/05/19 Pepto-Bismol Max St 15 ml PO PRN PRN 07/22/18 03/05/19 hydromorphone 4 mg PO Q6H #20 tab 07/22/18 03/05/19 lorazepam 1 tab PO PRN PRN 07/22/18 03/05/19 Eliquis 10 mg PO BID 5 Days #20 tab 07/26/18 03/05/19 bisacodyl 10 mg [place] DAILY PRN PRN #10 supp 07/26/18 03/05/19 haloperidol lactate 1 mg PO TID PRN PRN #1 btl 07/26/18 03/05/19 polyethylene glycol 3350 17 gm PO DAILY PRN PRN packet 07/26/18 03/05/19 pantoprazole 40 mg tablet,delayed 40 mg PO DAILY #90 tab 08/22/18 03/05/19 release fentanyl 12 mcg/hr transdermal 1 patch TD Q72H #10 each MDD 1 10/02/18 03/05/19 patch patch aspirin 81 mg tablet,delayed 81 mg PO DAILY 03/05/19 03/05/19 release ranitidine 300 mg capsule 300 mg PO DAILY 03/05/19 03/05/19 Previous Rx's Medication Instructions Recorded ondansetron 4 mg PO Q6H PRN #10 tabef 07/19/18 hydromorphone 4 mg PO Q6H #20 tab 07/22/18 Eliquis 10 mg PO BID 5 Days #20 tab 07/26/18 bisacodyl 10 mg [place] DAILY PRN PRN #10 supp 07/26/18 haloperidol lactate 1 mg PO TID PRN PRN #1 btl 07/26/18 polyethylene glycol 3350 17 gm PO DAILY PRN PRN packet 07/26/18 pantoprazole 40 mg tablet,delayed 40 mg PO DAILY #90 tab 08/22/18 release fentanyl 12 mcg/hr transdermal 1 patch TD Q72H #10 each MDD 1 10/02/18 patch patch Allergies Allergy/AdvReac Type Severity Reaction Status Date / Time cyclobenzaprine HCl Allergy Intermediate Hives Unverified 03/13/19 12:35 [From Flexeril] tetracycline Allergy Mild Hives Unverified 03/13/19 12:35 Review of Systems Review of Systems All systems reviewed & are unremarkable except as noted in HPI and below PFSH Social History Smoking/Tobacco Use Status: Current every day Tobacco Type: cigarettes Quit status: considering quitting Second Hand Exposure: No Counseling given: provider counseling and counseling >10 minutes Alcohol Intake: former Drug use: Never Adopted: No Caregiver/Support person: Yes Foster care: No Household members: significant other Housing: house Number of Children: 2 number of grandchildren: 3 Education Level: high school Do you need help understanding health information?: Rarely current occupation: on disability/early senior care from adminstration for [employer] Pets and animals: Yes What is your relationship status?: How often do you talk on the phone with friends or family?: three or more times per week How often do you get together with friends or relatives?: three or more times per week Panel score (0-1 are the most socially isolated patients): 2 What type of physical activity do you participate in: none Special gillian needs: No Agree to transfusion: Yes Seatbelt use: always Drive intox or ride w/intox snaker tractor driver: No Do you feel safe in your relationship?: Yes Exam Narrative Exam Narrative: 1.Const: Well-nourished, Well-developed, appearing stated age 2.Eyes: PERRL, no conjunctival injection, and symmetrical lids. 3.ENT: Atraumatic external nose and ears. Notably dry mucous may. Neck: Symmetric, trachea midline, No thyromegaly. 4.CVS: +S1/S2, No murmurs or gallops. Peripheral pulses 2+ and equal in all extremities. Brisk capillary refill in all extremities. 5.RESP: Unlabored respiratory effort. Clear to auscultation bilaterally. No wheezes rales or rhonchi 6.GI: Soft,Nondistended, No hepatosplenomegaly. No guarding or rebound. Patient does demonstrate mild tenderness throughout, which she states is not atypical for normal. No evidence of an acute surgical abdomen on exam. 7.MSK: Normocephalic/Atraumatic, Extremities w/o deformity or ttp No cyanosis or clubbing, Normal movement of all extremities 8.Skin: Warm, Dry. No rashes or lesions. 9.Neuro: frame fixer II-XII grossly intact. Sensation grossly intact, no focal neurologic deficits. 10.Psych: (AAO) x3. Appropriate mood and affect
[2019-03-13 15:43] LABS: Bilirubin Negative (Negative); Blood Negative (Negative); Clarity Clear; Glucose Negative (Negative); Ketones Negative (Negative); Leukocyte Esterase Negative (Negative); Nitrite Negative (Negative); Urobilinogen 0.2 EU/dL (Up TO 0.2); pH 5.5 (5-8)
[2019-03-13 15:50] LABS: POTASSIUM,URINE RANDOM 13 mmol/L; Sodium, Urine 90 mmol/L
[2019-03-13] MEDS: MAGNESIUM SULFATE 1 GM/100 ML BAG IVPB (16:59)
[2019-03-13 19:00] VITALS: BP 145/85; PULSE 83; RESP 14; TEMP 36.7; O2SAT 97
[2019-03-14 08:43] LABS: Magnesium Random Urine 3.7 mg/dl
== END 2019-03-13 17:15 | disposition short-term general hospital (02) ==
PROVIDERS: Emergency Provider Student in an Organized Health Care Education/Training Program; PCP Family Medicine
DX: N14.1 Nephropathy induced by other drugs, medicaments and biological substances (principal); E87.6 Hypokalemia; E83.42 Hypomagnesemia
CPT/HCPCS: 36415; 80053; 83690; 83735; 93005; 96361; 96365; 96366; 96367; 96375; 99284; 81003; 84133; 84300; 84443; 85025; 93010; J0131; J2765; J3475; J3480

== ENCOUNTER 2019-03-29 01:54 | Outpatient (RCR) | payer BC, SELFPAY ==
[2019-03-29] MEDS: Heparin 500 UNITS/5 ML SYRINGE IV (08:41)
[2019-03-29] MEDS: Normal Saline Flush 10 ML SYR IVP (08:41)
[2019-03-29 08:55] LABS: Abs Immature Grans 0.01 k/cumm (0.0-0.09); Absolute Basophil Count 0.03 k/cumm (0.0-0.2); Absolute Lymphocyte Count 1.49 k/cumm (1.2-3.4); Absolute Monocyte Count 0.77 k/cumm (0.11-0.7); Absolute Neutrophil Count 8.25 k/cumm (1.2-6.7); Basophils % 0.3; Eosinophils % 2.8; HCT 36.8 % (36.0-46.0); HGB 11.8 g/dL (12.0-15.5); Immature Grans % 0.1; Lymphocytes % 13.7; Mean Corp. HGB Concentration 32.1 g/dL (32.0-36.0); Mean Corpuscular Hemoglobin 28.1 pg (27.0-33.0); Mean Corpuscular Volume 87.6 fL (80-95); Mean Platelet Volume 10.1 fL (8.0-11.0); Monocytes % 7.1; Platelet Count 318 x1000/uL (130-400); RBC Distribution Width 17.4 % (11.7-14.6); White Blood Cell Count 10.85 k/cumm (4.4-10.8)
[2019-03-29 09:08] LABS: ALT 16 U/L (12-78); AST 14 U/L (15-37); Albumin 3.6 g/dL (3.4-5.0); Alkaline Phosphatase 88 U/L (46-116); Anion Gap 8.3 mmol/L (3-11); BUN 10 mg/dL (7-18); Bilirubin, Total 0.4 mg/dL (0.2-1.0); CO2 28.7 mmol/L (21.0-32.0); CREATININE 0.77 mg/dL (0.55-1.02); Calcium 10.2 mg/dL (8.5-10.1); Chloride 100 mmol/L (98-107); Glucose 135 mg/dL (70-100); Potassium 3.7 mmol/L (3.5-5.1); Sodium 137 mmol/L (136-145); Total Protein 7.5 g/dL (6.4-8.2)
[2019-03-29 11:00] LABS: Magnesium 1.7 mg/dL (1.8-2.4)
[2019-04-01 10:39] LABS: CA 19-9 135 U/mL (<35)
== END 2019-04-26 23:59 | disposition home or self-care (01) ==
LOC: INF 01:54
PROVIDERS: Nurse Practitioner Adult Health; PCP Family Medicine; Visit Provider Internal Medicine Hematology & Oncology
DX: C25.9 Malignant neoplasm of pancreas, unspecified (principal); Z45.2 Encounter for adjustment and management of vascular access device
CPT/HCPCS: 36591; 80053; 83735; 85025; 86301

== ENCOUNTER 2019-04-12 11:50 | Emergency (ER) | payer BC, SELFPAY ==
[2019-04-12 11:53] VITALS: BP 129/91; PULSE 104; RESP 20; TEMP 37.1; O2SAT 96
--- NOTE | 2019-04-12 12:04 | W.ED.GENAD ---
Discharge Plan Disposition Patient Disposition: HOME Condition: Stable Discharge Details Chief Complaint: Nausea/Vomit/Diar Clinical Impression: Diarrhea Primary Care Provider: Nadnini Lopes ED Provider: Rashaad Vicente Home Meds and New Rx's Prescriptions: No Action ranitidine HCl 300 mg capsule 300 mg PO DAILY RF: 0 aspirin 81 mg tablet,delayed release (DR/EC) 81 mg PO DAILY RF: 0 pantoprazole [Protonix] 40 mg tablet,delayed release (DR/EC) 40 mg PO DAILY Qty: 90 RF: 0 trazodone 50 MG tablet 50 mg PO HS RF: 0 fentanyl 12 mcg/hr patch 72 hour 1 patch TD Q72H MDD 1 patch Qty: 10 RF: 0 verapamil [Calan SR] 180 MG tablet extended release 180 mg PO DAILY RF: 0 bupropion HCl 300 MG tablet extended release 24 hr 300 mg PO QAM RF: 0 ondansetron 4 MG tablet,disintegrating 4 mg PO Q6H PRN (Reason: Nausea) Qty: 10 RF: 0 lorazepam 0.5 MG tablet 1 tab PO PRN PRNRF: 0 Pepto-Bismol Max St 525 MG/15 ML suspension 15 ml PO PRN PRNRF: 0 hydromorphone 4 MG tablet 4 mg PO Q6H Qty: 20 RF: 0 polyethylene glycol 3350 17 GM powder in packet 17 gm PO DAILY PRN PRNRF: 0 bisacodyl 10 MG suppository 10 mg [place] DAILY PRN PRNQty: 10 RF: 0 haloperidol lactate 2 MG/ML concentrate 1 mg PO TID PRN PRN (Reason: Nausea) Qty: 1 RF: 1 Discharge Instructions Additional Instructions: Your symptoms are likely from the mixture of the pancreatic cancer and also the clostridium difficile infection you are being treated for follow up with your primary care provider in 1-2 weeks if you have severe worsening abdominal pain or persistent vomit return to the emergency department for reevaluation Medical Decision Making 63 yo female with hx of pancreatic cancer without chemotherapy since January who comes in with over a month of diarrhea. Has tested positivie for c diff, had vanco for 10 days and now is on day 4 of rifaximin and still having loose stools so came here. She is in no distress on exam, without any abdominal tenderness so doubt fulminant colitis. I suspect this is due to a mix of her c diff and also her cancer causing pancreatic insufficiency, will eval for electrolyte abnormalities and also olegario and monitor pt remains stable, no significant leukocytosis or olegario, mild elevation of lactate likely from mild dehyration. ADvised to continue oral abx, if severe worsening pain or symptoms to return to the emergency department Differential Diagnosis c diff, pancreatitic cancer Lab Data Lab results reviewed: Yes I reviewed the patient's lab results. HPI General Mode of arrival: ambulatory. Date/Time Provider Initiated Documentation: 04/12/19 11:54. Limitations to Documentation: no limitations. Information obtained by: patient. History of Present Illness 63 year old F presents to the emergency department with the chief complaint of diarrhea, described as moderate, Patient started experiencing this week(s) (4) and it has been constant. No relieving factors improve symptom(s), No exacerbating factors reported . Patient notes no other symptoms.. Patient did receive the following treatments prior to arrival, none Related Data Home Medications Medication Instructions Recorded Confirmed bupropion HCl 300 mg PO QAM 01/29/13 04/12/19 verapamil [Calan SR] 180 mg PO DAILY 01/29/13 04/12/19 trazodone 50 mg PO HS 11/18/15 04/12/19 ondansetron 4 mg PO Q6H PRN #10 tabef 07/19/18 04/12/19 Pepto-Bismol Max St 15 ml PO PRN PRN 07/22/18 04/12/19 hydromorphone 4 mg PO Q6H #20 tab 07/22/18 04/12/19 lorazepam 1 tab PO PRN PRN 07/22/18 04/12/19 bisacodyl 10 mg [place] DAILY PRN PRN #10 supp 07/26/18 04/12/19 haloperidol lactate 1 mg PO TID PRN PRN #1 btl 07/26/18 04/12/19 polyethylene glycol 3350 17 gm PO DAILY PRN PRN packet 07/26/18 03/13/19 pantoprazole 40 mg tablet,delayed 40 mg PO DAILY #90 tab 08/22/18 03/13/19 release fentanyl 12 mcg/hr transdermal 1 patch TD Q72H #10 each MDD 1 10/02/18 04/12/19 patch patch aspirin 81 mg tablet,delayed 81 mg PO DAILY 03/05/19 04/12/19 release ranitidine 300 mg capsule 300 mg PO DAILY 03/05/19 04/12/19 Previous Rx's Medication Instructions Recorded ondansetron 4 mg PO Q6H PRN #10 tabef 07/19/18 hydromorphone 4 mg PO Q6H #20 tab 07/22/18 bisacodyl 10 mg [place] DAILY PRN PRN #10 supp 07/26/18 haloperidol lactate 1 mg PO TID PRN PRN #1 btl 07/26/18 polyethylene glycol 3350 17 gm PO DAILY PRN PRN packet 07/26/18 pantoprazole 40 mg tablet,delayed 40 mg PO DAILY #90 tab 08/22/18 release fentanyl 12 mcg/hr transdermal 1 patch TD Q72H #10 each MDD 1 10/02/18 patch patch Allergies Allergy/AdvReac Type Severity Reaction Status Date / Time cyclobenzaprine HCl Allergy Intermediate Hives Unverified 04/12/19 11:57 [From Flexeril] tetracycline Allergy Mild Hives Unverified 04/12/19 11:57 General Stated Complaint: Nausea/Vomit/Diar LUIS: 3 Review of Systems Review of Systems All systems reviewed & are unremarkable except as noted in HPI and below Constitutional Denies chills, Denies fever(s) and Denies weakness Cardiovascular Denies dyspnea Respiratory Denies dyspnea Gastrointestinal Denies nausea and Denies vomiting Genitourinary Denies dysuria Musculoskeletal Denies joint swelling Integumentary/Breasts Denies rash Neurologic Denies weakness [facility] Social History Smoking/Tobacco Use Status: Current every day Tobacco Type: cigarettes Quit status: considering quitting Second Hand Exposure: No Counseling given: provider counseling and counseling >10 minutes Alcohol Intake: former Drug use: Never Substance use type: does not use Adopted: No Caregiver/Support person: Yes Foster care: No Household members: significant other Housing: house Number of Children: 2 number of grandchildren: 3 Education Level: high school Do you need help understanding health information?: Rarely 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[employer] Pets and animals: Yes What is your relationship status?: How often do you talk on the phone with friends or family?: three or more times per week How often do you get together with friends or relatives?: three or more times per week Panel score (0-1 are the most socially isolated patients): 2 What type of physical activity do you participate in: none Special gillian needs: No Agree to transfusion: Yes Seatbelt use: always Drive intox or ride w/intox wagon driver: No Do you feel safe at home: Yes Do you feel safe in your relationship?: Yes Exam Const General: no acute distress Orientation: alert HENMT Head: normal to inspection Ears: external ears normal General nose exam: external nose normal Mouth: moist mucous membranes Eyes General: appearance normal, both eyes and all related structures Neck Neck: normal visual inspection Resp Effort & Inspection: normal respiratory effort and able to speak in complete sentences Cardio Rate: regular rate GI Palpation: soft and nontender Skin General skin exam: no rashes or lesions noted Neuro General: alert and oriented x3 Extrem General: normal to inspection Psych Mental Status: mental status grossly normal Course Vital Signs Temperature 37.1 C 04/12/19 11:53 Pulse 104 H 04/12/19 11:53 Respiratory Rate 20 04/12/19 11:53 Blood Pressure 129/91 H 04/12/19 11:53 Pulse Oximetry 96 04/12/19 11:53 Temperature 37.1 C 04/12/19 11:53 Temperature Source Temporal Artery Scan 04/12/19 11:53 Pulse 104 H 04/12/19 11:53 Respiratory Rate 20 04/12/19 11:53 Respiratory Effort Non-Labored 04/12/19 11:53 Blood Pressure 129/91 H 04/12/19 11:53 Pulse Oximetry 96 04/12/19 11:53 Oxygen Delivery Method Room Air 04/12/19 11:53 Oxygen Flow Rate 0 04/12/19 11:53 Pain Level 0 04/12/19 11:53
--- NOTE | 2019-04-12 12:08 | ED.GENADUL_ITS ---
Discharge Plan Disposition Patient Disposition: HOME Condition: Stable Discharge Details Chief Complaint: Nausea/Vomit/Diar Clinical Impression: Diarrhea Primary Care Provider: Nandini Lopes ED Provider: Rashaad Vicente Home Meds and New Rx's Prescriptions: No Action ranitidine HCl 300 mg capsule 300 mg PO DAILY RF: 0 aspirin 81 mg tablet,delayed release (DR/EC) 81 mg PO DAILY RF: 0 pantoprazole [Protonix] 40 mg tablet,delayed release (DR/EC) 40 mg PO DAILY Qty: 90 RF: 0 trazodone 50 MG tablet 50 mg PO HS RF: 0 fentanyl 12 mcg/hr patch 72 hour 1 patch TD Q72H MDD 1 patch Qty: 10 RF: 0 verapamil [Calan SR] 180 MG tablet extended release 180 mg PO DAILY RF: 0 bupropion HCl 300 MG tablet extended release 24 hr 300 mg PO QAM RF: 0 ondansetron 4 MG tablet,disintegrating 4 mg PO Q6H PRN (Reason: Nausea) Qty: 10 RF: 0 lorazepam 0.5 MG tablet 1 tab PO PRN PRNRF: 0 Pepto-Bismol Max St 525 MG/15 ML suspension 15 ml PO PRN PRNRF: 0 hydromorphone 4 MG tablet 4 mg PO Q6H Qty: 20 RF: 0 polyethylene glycol 3350 17 GM powder in packet 17 gm PO DAILY PRN PRNRF: 0 bisacodyl 10 MG suppository 10 mg [place] DAILY PRN PRNQty: 10 RF: 0 haloperidol lactate 2 MG/ML concentrate 1 mg PO TID PRN PRN (Reason: Nausea) Qty: 1 RF: 1 Discharge Instructions Additional Instructions: Your symptoms are likely from the mixture of the pancreatic cancer and also the clostridium difficile infection you are being treated for follow up with your primary care provider in 1-2 weeks if you have severe worsening abdominal pain or persistent vomit return to the emergency department for reevaluation Medical Decision Making 63 yo female with hx of pancreatic cancer without chemotherapy since January who comes in with over a month of diarrhea. Has tested positivie for c diff, had vanco for 10 days and now is on day 4 of rifaximin and still having loose stools so came here. She is in no distress on exam, without any abdominal tenderness so doubt fulminant colitis. I suspect this is due to a mix of her c diff and also her cancer causing pancreatic insufficiency, will eval for electrolyte abnormalities and also olegario and monitor pt remains stable, no significant leukocytosis or olegario, mild elevation of lactate likely from mild dehyration. ADvised to continue oral abx, if severe worsening pain or symptoms to return to the emergency department Differential Diagnosis c diff, pancreatitic cancer Lab Data Lab results reviewed: Yes I reviewed the patient's lab results. HPI General Mode of arrival: ambulatory . Date/Time Provider Initiated Documentation: 04/12/19 11:54 . Limitations to Documentation: no limitations . Information obtained by: patient . History of Present Illness 63 year old F presents to the emergency department with the chief complaint of diarrhea, described as moderate, Patient started experiencing this week(s) (4) and it has been constant. No relieving factors improve symptom(s), No exacerbating factors reported . Patient notes no other symptoms.. Patient did receive the following treatments prior to arrival, none Related Data Home Medications Medication Instructions Recorded Confirmed bupropion HCl 300 mg PO QAM 01/29/13 04/12/19 verapamil [Calan SR] 180 mg PO DAILY 01/29/13 04/12/19 trazodone 50 mg PO HS 11/18/15 04/12/19 ondansetron 4 mg PO Q6H PRN #10 tabef 07/19/18 04/12/19 Pepto-Bismol Max St 15 ml PO PRN PRN 07/22/18 04/12/19 hydromorphone 4 mg PO Q6H #20 tab 07/22/18 04/12/19 lorazepam 1 tab PO PRN PRN 07/22/18 04/12/19 bisacodyl 10 mg [place] DAILY PRN PRN #10 supp 07/26/18 04/12/19 haloperidol lactate 1 mg PO TID PRN PRN #1 btl 07/26/18 04/12/19 polyethylene glycol 3350 17 gm PO DAILY PRN PRN packet 07/26/18 03/13/19 pantoprazole 40 mg tablet,delayed 40 mg PO DAILY #90 tab 08/22/18 03/13/19 release fentanyl 12 mcg/hr transdermal 1 patch TD Q72H #10 each MDD 1 10/02/18 04/12/19 patch patch aspirin 81 mg tablet,delayed 81 mg PO DAILY 03/05/19 04/12/19 release ranitidine 300 mg capsule 300 mg PO DAILY 03/05/19 04/12/19 Previous Rx's Medication Instructions Recorded ondansetron 4 mg PO Q6H PRN #10 tabef 07/19/18 hydromorphone 4 mg PO Q6H #20 tab 07/22/18 bisacodyl 10 mg [place] DAILY PRN PRN #10 supp 07/26/18 haloperidol lactate 1 mg PO TID PRN PRN #1 btl 07/26/18 polyethylene glycol 3350 17 gm PO DAILY PRN PRN packet 07/26/18 pantoprazole 40 mg tablet,delayed 40 mg PO DAILY #90 tab 08/22/18 release fentanyl 12 mcg/hr transdermal 1 patch TD Q72H #10 each MDD 1 10/02/18 patch patch Allergies Allergy/AdvReac Type Severity Reaction Status Date / Time cyclobenzaprine HCl Allergy Intermediate Hives Unverified 04/12/19 11:57 [From Flexeril] tetracycline Allergy Mild Hives Unverified 04/12/19 11:57 General Stated Complaint: Nausea/Vomit/Diar LUIS: 3 Review of Systems Review of Systems All systems reviewed & are unremarkable except as noted in HPI and below Constitutional Denies chills, Denies fever(s) and Denies weakness Cardiovascular Denies dyspnea Respiratory Denies dyspnea Gastrointestinal Denies nausea and Denies vomiting Genitourinary Denies dysuria Musculoskeletal Denies joint swelling Integumentary/Breasts Denies rash Neurologic Denies weakness [facility] Social History Smoking/Tobacco Use Status: Current every day Tobacco Type: cigarettes Quit status: considering quitting Second Hand Exposure: No Counseling given: provider counseling and counseling >10 minutes Alcohol Intake: former Drug use: Never Substance use type: does not use Adopted: No Caregiver/Support person: Yes Foster care: No Household members: significant other Housing: house Number of Children: 2 number of grandchildren: 3 Education Level: high school Do you need help understanding health information?: Rarely 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 [employer] Pets and animals: Yes What is your relationship status?: How often do you talk on the phone with friends or family?: three or more times per week How often do you get together with friends or relatives?: three or more times per week Panel score (0-1 are the most socially isolated patients): 2 What type of physical activity do you participate in: none Special gillian needs: No Agree to transfusion: Yes Seatbelt use: always Drive intox or ride w/intox cdl driver: No Do you feel safe at home: Yes Do you feel safe in your relationship?: Yes Exam Const General: no acute distress Orientation: alert HENMT Head: normal to inspection Ears: external ears normal General nose exam: external nose normal Mouth: moist mucous membranes Eyes General: appearance normal, both eyes and all related structures Neck Neck: normal visual inspection Resp Effort & Inspection: normal respiratory effort and able to speak in complete sentences Cardio Rate: regular rate GI Palpation: soft and nontender Skin General skin exam: no rashes or lesions noted Neuro General: alert and oriented x3 Extrem General: normal to inspection Psych Mental Status: mental status grossly normal Course Vital Signs Temperature 37.1 C 04/12/19 11:53 Pulse 104 H 04/12/19 11:53 Respiratory Rate 20 04/12/19 11:53 Blood Pressure 129/91 H 04/12/19 11:53 Pulse Oximetry 96 04/12/19 11:53 Temperature 37.1 C 04/12/19 11:53 Temperature Source Temporal Artery Scan 04/12/19 11:53 Pulse 104 H 04/12/19 11:53 Respiratory Rate 20 04/12/19 11:53 Respiratory Effort Non-Labored 04/12/19 11:53 Blood Pressure 129/91 H 04/12/19 11:53 Pulse Oximetry 96 04/12/19 11:53 Oxygen Delivery Method Room Air 04/12/19 11:53 Oxygen Flow Rate 0 04/12/19 11:53 Pain Level 0 04/12/19 11:53
[2019-04-12 12:19] LABS: Abs Immature Grans 0.01 k/cumm (0.0-0.09); Absolute Basophil Count 0.03 k/cumm (0.0-0.2); Absolute Eosinophil Count 0.32 k/cumm (0.0-0.7); Absolute Lymphocyte Count 1.69 k/cumm (1.2-3.4); Absolute Monocyte Count 0.47 k/cumm (0.11-0.7); Absolute Neutrophil Count 4.55 k/cumm (1.2-6.7); Basophils % 0.4; Eosinophils % 4.5; HCT 34.2 % (36.0-46.0); HGB 11.3 g/dL (12.0-15.5); Immature Grans % 0.1; Lactate-non-spesis 2.3 mmol/l (0.6-1.4); Lymphocytes % 23.9; Mean Corpuscular Hemoglobin 28.5 pg (27.0-33.0); Mean Corpuscular Volume 86.4 fL (80-95); Mean Platelet Volume 9.6 fL (8.0-11.0); Monocytes % 6.6; Neutrophils % 64.5; Platelet Count 229 x1000/uL (130-400); RBC 3.96 m/cumm (4.00-5.20); RBC Distribution Width 16.6 % (11.7-14.6); White Blood Cell Count 7.07 k/cumm (4.4-10.8)
[2019-04-12 12:43] LABS: ALT 22 U/L (12-78); AST 14 U/L (15-37); Albumin 3.5 g/dL (3.4-5.0); Alkaline Phosphatase 85 U/L (46-116); Anion Gap 12.3 mmol/L (3-11); BUN 13 mg/dL (7-18); Bilirubin, Total 0.2 mg/dL (0.2-1.0); CO2 23.7 mmol/L (21.0-32.0); CREATININE 0.77 mg/dL (0.55-1.02); Calcium 9.5 mg/dL (8.5-10.1); Chloride 103 mmol/L (98-107); Glucose 156 mg/dL (70-100); Potassium 3.3 mmol/L (3.5-5.1); Sodium 139 mmol/L (136-145); Total Protein 6.9 g/dL (6.4-8.2)
[2019-04-12] MEDS: Normal Saline 1,000 ML 1000 ML IV (12:46)
[2019-04-15 12:08] LABS: CA 19-9 169 U/mL (<35)
== END 2019-04-12 13:12 | disposition home or self-care (01) ==
PROVIDERS: Nurse Practitioner Adult Health; Emergency Provider Emergency Medicine; PCP Family Medicine
DX: R19.7 Diarrhea, unspecified (principal); C25.9 Malignant neoplasm of pancreas, unspecified
CPT/HCPCS: 36415; 80053; 96360; 99283; 83605; 85025; 86301

== ENCOUNTER 2019-05-17 01:40 | Outpatient (RCR) | payer BC, SELFPAY ==
[2019-05-17] MEDS: Normal Saline Flush 10 ML SYR IVP (12:19)
[2019-05-17] MEDS: Heparin 500 UNITS/5 ML SYRINGE IV (12:20)
[2019-05-17 12:43] LABS: Absolute Basophil Count 0.04 k/cumm (0.0-0.2); Absolute Eosinophil Count 0.21 k/cumm (0.0-0.7); Absolute Lymphocyte Count 1.33 k/cumm (1.2-3.4); Absolute Monocyte Count 0.45 k/cumm (0.11-0.7); Basophils % 0.8; Eosinophils % 4.1; HCT 34.3 % (36.0-46.0); Lymphocytes % 25.9; Mean Corp. HGB Concentration 32.1 g/dL (32.0-36.0); Mean Corpuscular Hemoglobin 27.7 pg (27.0-33.0); Mean Corpuscular Volume 86.4 fL (80-95); Mean Platelet Volume 10.2 fL (8.0-11.0); Monocytes % 8.8; Neutrophils % 60.4; Platelet Count 219 x1000/uL (130-400); RBC 3.97 m/cumm (4.00-5.20); White Blood Cell Count 5.13 k/cumm (4.4-10.8)
[2019-05-17 13:02] LABS: ALT 15 U/L (12-78); AST 15 U/L (15-37); Albumin 3.3 g/dL (3.4-5.0); Alkaline Phosphatase 100 U/L (46-116); Anion Gap 11.9 mmol/L (3-11); BUN 11 mg/dL (7-18); Bilirubin, Total 0.3 mg/dL (0.2-1.0); CO2 24.1 mmol/L (21.0-32.0); CREATININE 0.76 mg/dL (0.55-1.02); Calcium 9.4 mg/dL (8.5-10.1); Chloride 106 mmol/L (98-107); Glucose 127 mg/dL (70-100); Potassium 3.6 mmol/L (3.5-5.1); Sodium 142 mmol/L (136-145); Total Protein 6.5 g/dL (6.4-8.2)
[2019-05-20 10:56] LABS: CA 19-9 597 U/mL (<35)
== END 2019-05-26 23:59 | disposition home or self-care (01) ==
LOC: INF 01:40
PROVIDERS: PCP Family Medicine; Visit Provider Nurse Practitioner Adult Health
DX: C25.9 Malignant neoplasm of pancreas, unspecified (principal); Z45.2 Encounter for adjustment and management of vascular access device
CPT/HCPCS: 36591; 80053; 85025; 86301